=== PATIENT | female | born 1955 | race Caucasian/White ===

== ENCOUNTER 2019-11-01 19:57 | Emergency (ER) | payer OTHER, MEDICAID, SELFPAY ==
[2019-11-01 20:09] VITALS: BP 168/77; PULSE 72; RESP 18; TEMP 36.6; O2SAT 94
[2019-11-01 20:40] VITALS: BP 168/74; PULSE 71; RESP 14; TEMP 36.3; O2SAT 96
--- NOTE | 2019-11-01 20:58 | DI.US.S_ITS ---
PROCEDURE: US PERIPH VENOUS LOW EXTREM RT INDICATIONS: PAIN,SWELLING,HEAT TECHNIQUE: Real-time imaging, as well as color and pulse Doppler interrogation, were performed of the lower extremity deep veins from the inguinal ligament to the popliteal fossa. COMPARISON: None. FINDINGS: The common femoral, femoral and popliteal veins are normally compressible, and free of intraluminal thrombus. Color and pulse Doppler demonstrate normal phasic intraluminal flow. There is normal augmentation response to distal compression maneuver. IMPRESSION: Negative for deep venous thrombosis. Note: No significant discrepancy from the preliminary report. Dictated by: Alexandre Hart M.D. on 11/02/2019 at 7:56 Approved by: Alexandre Hart M.D. on 11/02/2019 at 7:56
--- NOTE | 2019-11-01 21:18 | ED_ITS ---
HPI - Extremity Problem <CHANDNI Denson - Last Filed: 11/01/19 21:28> General Chief complaint: Extremity Problem,Nontraumatic Stated complaint: right leg swelling and hot Time Seen by Provider: 11/01/19 20:39 Source: patient Mode of arrival: Ambulatory Limitations: no limitations History of Present Illness HPI Narrative: The patient is a 64-year-old female nonsmoker with history of MRSA, venous insufficiency in atrial fibrillation on Xarelto who presents with a chief complaint of a swollen and hot right lower leg. She states that last week she burned her right khanna on a oven rack. Then over the past few days she has noticed worsening dark redness on the back of her right lower leg. She thought she felt warm yesterday morning, but no longer does. She denies any abdominal pain nausea vomiting or diarrhea. She does complain of generalized fatigue. She states that she has not been moving a lot since this started. She states that she has history of a MRSA cellulitis on that area and has scarring of her lower leg. She denies any chest pain or abnormal shortness of breath. She states that she thinks her tetanus is up-to-date. Related Data Allergies Allergy/AdvReac Type Severity Reaction Status Date / Time sulfanilamide Allergy Verified 11/01/19 20:15 Review of Systems <JAIME Denson - Last Filed: 11/01/19 21:28> Review of Systems Narrative: GENERAL: See HPI HEENT: Denies sinus pain, ear pain, sore throat, difficulty swallowing, dizziness. RESPIRATORY: Denies dyspnea, cough, wheezing, hemoptysis, sputum. CARDIOVASCULAR: Denies chest pain, palpitations, orthopnea, edema, GASTROINTESTINAL: Denies nausea, vomiting, abdominal pain, diarrhea, constipation, melena. : Denies dysuria, frequency, incontinence, hematuria, urinary retention. MUSCULOSKELETAL: See HPI SKIN: See HPI NEUROLOGIC: Denies weakness, headache, numbness, change in speech, confusion, seizures, incoordination. PSYCHIATRIC: No concerning psychosocial issues. 12 point review of systems is negative except for those stated above Patient History <JAIME Denson - Last Filed: 11/01/19 21:28> Medical History Atrial fibrillation (Acute) History of MRSA infection (Acute) Venous insufficiency (Acute) Social History Smoking Status: Never smoker Smoking Status: Never smoker alcohol intake frequency: a few times a month Substance Use Type: does not use Exam <SHERON Denson-BC - Last Filed: 11/01/19 21:28> Narrative Exam Narrative: GENERAL: Obese female lying on stretcher in no acute distress HEAD: Atraumatic. Normocephalic. No temporal or scalp tenderness. EYES: Pupils equal round and reactive. Extraocular motions intact. No scleral icterus. No injection or drainage. ENT: Nose without bleeding, purulent drainage or septal hematoma. Throat without erythema, tonsillar hypertrophy or exudate. Uvula midline. Airway patent. NECK: Trachea midline. No JVD or lymphadenopathy. Supple, nontender, no meningeal signs. CARDIOVASCULAR: Irregular rate and regular rhythm. The distant. RESPIRATORY: Diminished bilaterally to auscultation. Breath sounds equal bilaterally. No wheezes, rales, or rhonchi. No cough. No increased respiratory effort. No accessory muscle use. Speaking full sentences. GASTROINTESTINAL: Abdomen soft, non-tender, nondistended. N active bowel sounds all 4 quadrants EXTREMITIES: +1 pedal pulses bilaterally. 2+ edema bilateral lower legs. Pain to palpation of right calf. See skin exam BACK: Nontender without deformity or crepitance. No flank tenderness. NEURO: AOx3. SKIN: A 2 cm scabbed burn on right khanna with no surrounding erythema or drainage. Erythema noted entire posterior of right lower leg. Warm, tender to palpation. Initial Vital Signs Initial Vital Signs: Vital Signs Temperature 97.9 F 11/01/19 20:09 Pulse Rate 72 11/01/19 20:09 Respiratory Rate 18 11/01/19 20:09 Blood Pressure 168/77 H 11/01/19 20:09 Pulse Oximetry 94 11/01/19 20:09 <Lili New MD - Last Filed: 11/01/19 22:09> Initial Vital Signs Initial Vital Signs: Vital Signs Temperature 97.9 F 11/01/19 20:09 Pulse Rate 72 11/01/19 20:09 Respiratory Rate 18 11/01/19 20:09 Blood Pressure 168/77 H 11/01/19 20:09 Pulse Oximetry 94 11/01/19 20:09 Course <Cheyenne Moyer CUBE MACHINE TENDER-BC - Last Filed: 11/01/19 21:28> Course Course Narrative: The patient is a 64-year-old female who presents with a chief complaint of right lower leg pain and swelling. She has a burn on the anterior aspect of her right lower leg, though erythema on posterior side. Patient is signed out to Dr. New at 2110, with lab work pending to evaluate of cellulitis versus DVT. Orders Ordered: ED Orders 11/01/19 20:58 perip venous low extrem rt Stat 11/01/19 21:26 Complete Blood Count AUTO DIFF Stat Comprehensive Metabolic Panel Stat Lactate (Lactic Acid) Stat Partial Thromboplastin Time Stat Procalcitonin Stat Prothrombin Time INR Stat Ceftriaxone Sodium/Dextrose (Rocephin) 2 gm in 50 mls @ 100 mls/hr IV NOW ONE Stop: 11/01/19 22:27 Vital Signs Vital signs: Vital Signs - 8 hr 11/01/19 20:09 11/01/19 20:40 11/01/19 21:30 Temperature 97.9 F 97.4 F L Pulse Rate 72 71 73 Respiratory Rate 18 14 12 Blood Pressure 168/77 H Blood Pressure [Left Arm] 168/74 H 168/74 H Pulse Oximetry 94 96 100 <Lili New MD - Last Filed: 11/01/19 22:09> Orders Ordered: ED Orders 11/01/19 20:58 [facility] venous low extrem rt Stat 11/01/19 21:26 Complete Blood Count AUTO DIFF Stat Comprehensive Metabolic Panel Stat Lactate (Lactic Acid) Stat Partial Thromboplastin Time Stat Procalcitonin Stat Prothrombin Time INR Stat Ceftriaxone Sodium/Dextrose (Rocephin) 2 gm in 50 mls @ 100 mls/hr IV NOW ONE Stop: 11/01/19 22:27 Vital Signs Vital signs: Vital Signs - 8 hr 11/01/19 20:09 11/01/19 20:40 11/01/19 21:30 Temperature 97.9 F 97.4 F L Pulse Rate 72 71 73 Respiratory Rate 18 14 12 Blood Pressure 168/77 H Blood Pressure [Left Arm] 168/74 H 168/74 H Pulse Oximetry 94 96 100 MDM - Extremity (Nontraumatic) <Cheyenne Moyer, CUBE MACHINE TENDER-BC - Last Filed: 11/01/19 21:28> Lab Data Result diagrams: 11/01/19 21:26 11/01/19 21:26 Labs: Lab Results 11/01/19 11/01/19 11/01/19 Range/Units 21:26 21:26 21:26 WBC 9.0 (4.5-11.0) X10^3/uL RBC 3.82 L (4.0-5.2) X10^6/uL Hgb 12.1 (12.0-16.0) g/dL Hct 36.1 (36-46) % MCV 94.3 (80-100) fL MCH 31.6 (26-34) PG MCHC 33.5 (30-36) % RDW 13.6 (11.6-14.8) % Plt Count 224 (150-400) X10^3/uL Neut % (Auto) 77.1 H (50-75) % Lymph % (Auto) 11.6 L (25-40) % [place] % (Auto) 10.5 (3-14) % Eos % (Auto) 0.2 L (2-4) % Baso % (Auto) 0.6 (0-2) % Neut # (Auto) 7000 (0264-1846) /uL Lymph # (Auto) 1100 (9733-9730) /uL [place] # (Auto) 1000 H (0-900) /uL Eos # (Auto) 0 (0-450) /uL Baso # (Auto) 100 (0-100) /uL PT 16.0 H (10.1-12.7) SECONDS INR 1.4 H (0.9-1.3) APTT 39 H (26.4-36.2) SECONDS Sodium (137-145) mmol/L Potassium (3.4-5.1) mmol/L Chloride (98-107) mmol/L Carbon Dioxide (22-32) mmol/L BUN (7-17) mg/dL Creatinine (0.52-1.04) mg/dL Estimated GFR (>60) mL/min BUN/Creatinine Ratio (6-22) Glucose (80-110) mg/dL Lactate (0.7-2.1) mmol/L Calcium (8.4-10.2) mg/dL Total Bilirubin (0.2-1.3) mg/dL AST (14-36) IU/L ALT (<35) IU/L Alkaline Phosphatase (38-126) U/L Total Protein (6.3-8.2) g/dL Albumin (3.5-5.0) g/dL Globulin (1.7-4.1) g/dL Albumin/Globulin Ratio (1.0-2.8) Procalcitonin < 0.05 (<0.5) ng/mL 11/01/19 11/01/19 Range/Units 21:26 21:26 WBC (4.5-11.0) X10^3/uL RBC (4.0-5.2) X10^6/uL Hgb (12.0-16.0) g/dL Hct (36-46) % MCV (80-100) fL MCH (26-34) PG MCHC (30-36) % RDW (11.6-14.8) % Plt Count (150-400) X10^3/uL Neut % (Auto) (50-75) % Lymph % (Auto) (25-40) % [place] % (Auto) (3-14) % Eos % (Auto) (2-4) % Baso % (Auto) (0-2) % Neut # (Auto) (7708-6764) /uL Lymph # (Auto) (8411-7063) /uL [place] # (Auto) (0-900) /uL Eos # (Auto) (0-450) /uL Baso # (Auto) (0-100) /uL PT (10.1-12.7) SECONDS INR (0.9-1.3) APTT (26.4-36.2) SECONDS Sodium 140 (137-145) mmol/L Potassium 4.0 (3.4-5.1) mmol/L Chloride 104 (98-107) mmol/L Carbon Dioxide 33 H (22-32) mmol/L BUN 17 (7-17) mg/dL Creatinine 0.99 (0.52-1.04) mg/dL Estimated GFR 56.1 L (>60) mL/min BUN/Creatinine Ratio 17.2 (6-22) Glucose 108 (80-110) mg/dL Lactate 0.6 L (0.7-2.1) mmol/L Calcium 9.8 (8.4-10.2) mg/dL Total Bilirubin 0.5 (0.2-1.3) mg/dL AST 25 (14-36) IU/L ALT 20 (<35) IU/L Alkaline Phosphatase 65 (38-126) U/L Total Protein 7.7 (6.3-8.2) g/dL Albumin 4.2 (3.5-5.0) g/dL Globulin 3.5 (1.7-4.1) g/dL Albumin/Globulin Ratio 1.2 (1.0-2.8) Procalcitonin (<0.5) ng/mL <Lili New MD - Last Filed: 11/01/19 22:09> Lab Data Attestation: I reviewed the patient's lab results. Lab results narrative: No signs of sepsis or worsening renal function. Normal white blood cell count Labs: Lab Results 11/01/19 11/01/19 11/01/19 Range/Units 21:26 21:26 21:26 WBC 9.0 (4.5-11.0) X10^3/uL RBC 3.82 L (4.0-5.2) X10^6/uL Hgb 12.1 (12.0-16.0) g/dL Hct 36.1 (36-46) % MCV 94.3 (80-100) fL MCH 31.6 (26-34) PG MCHC 33.5 (30-36) % RDW 13.6 (11.6-14.8) % Plt Count 224 (150-400) X10^3/uL Neut % (Auto) 77.1 H (50-75) % Lymph % (Auto) 11.6 L (25-40) % [place] % (Auto) 10.5 (3-14) % Eos % (Auto) 0.2 L (2-4) % Baso % (Auto) 0.6 (0-2) % Neut # (Auto) 7000 (6491-4025) /uL Lymph # (Auto) 1100 (9912-9377) /uL [place] # (Auto) 1000 H (0-900) /uL Eos # (Auto) 0 (0-450) /uL Baso # (Auto) 100 (0-100) /uL PT 16.0 H (10.1-12.7) SECONDS INR 1.4 H (0.9-1.3) APTT 39 H (26.4-36.2) SECONDS Sodium (137-145) mmol/L Potassium (3.4-5.1) mmol/L Chloride (98-107) mmol/L Carbon Dioxide (22-32) mmol/L BUN (7-17) mg/dL Creatinine (0.52-1.04) mg/dL Estimated GFR (>60) mL/min BUN/Creatinine Ratio (6-22) Glucose (80-110) mg/dL Lactate (0.7-2.1) mmol/L Calcium (8.4-10.2) mg/dL Total Bilirubin (0.2-1.3) mg/dL AST (14-36) IU/L ALT (<35) IU/L Alkaline Phosphatase (38-126) U/L Total Protein (6.3-8.2) g/dL Albumin (3.5-5.0) g/dL Globulin (1.7-4.1) g/dL Albumin/Globulin Ratio (1.0-2.8) Procalcitonin < 0.05 (<0.5) ng/mL 11/01/19 11/01/19 Range/Units 21:26 21:26 WBC (4.5-11.0) X10^3/uL RBC (4.0-5.2) X10^6/uL Hgb (12.0-16.0) g/dL Hct (36-46) % MCV (80-100) fL MCH (26-34) PG MCHC (30-36) % RDW (11.6-14.8) % Plt Count (150-400) X10^3/uL Neut % (Auto) (50-75) % Lymph % (Auto) (25-40) % [place] % (Auto) (3-14) % Eos % (Auto) (2-4) % Baso % (Auto) (0-2) % Neut # (Auto) (9223-4418) /uL Lymph # (Auto) (3828-1300) /uL [place] # (Auto) (0-900) /uL Eos # (Auto) (0-450) /uL Baso # (Auto) (0-100) /uL PT (10.1-12.7) SECONDS INR (0.9-1.3) APTT (26.4-36.2) SECONDS Sodium 140 (137-145) mmol/L Potassium 4.0 (3.4-5.1) mmol/L Chloride 104 (98-107) mmol/L Carbon Dioxide 33 H (22-32) mmol/L BUN 17 (7-17) mg/dL Creatinine 0.99 (0.52-1.04) mg/dL Estimated GFR 56.1 L (>60) mL/min BUN/Creatinine Ratio 17.2 (6-22) Glucose 108 (80-110) mg/dL Lactate 0.6 L (0.7-2.1) mmol/L Calcium 9.8 (8.4-10.2) mg/dL Total Bilirubin 0.5 (0.2-1.3) mg/dL AST 25 (14-36) IU/L ALT 20 (<35) IU/L Alkaline Phosphatase 65 (38-126) U/L Total Protein 7.7 (6.3-8.2) g/dL Albumin 4.2 (3.5-5.0) g/dL Globulin 3.5 (1.7-4.1) g/dL Albumin/Globulin Ratio 1.2 (1.0-2.8) Procalcitonin (<0.5) ng/mL Imaging Data US - DVT: My Impression: Per instructional technology coordinator, no evidence of DVT MDM Narrative Medical decision making narrative: Patient is assumed from Cheyenne Moyer. She has independently examined. She has a healing wound on her anterior khanna with erythema to the bottom 3/4 of her calf with dependent erythema posteriorly and increasing overall swelling. She does have chronic venous stasis changes. Approximately 9 years ago she had a significant MRSA infection in needed hospitalization. She notes that she has had myalgias and low-grade fevers for a couple of days. She has not noticed any drainage from the wound. Ultrasound indicates no evidence of DVT. Labs suggests no evidence of sepsis. With an obvious source for infection, no sign of sepsis, chronic venous stasis changes and with shared decision making with the patient we have opted to start with 2 g of ceftriaxone here in the emergency department and then continue Keflex and clindamycin outpatient. She is allergic to Septra. <Lili New MD - Last Filed: 11/01/19 22:09> Cosign ED Attending Cosignature Attestation: I was immediately available in the department for consultation throughout this patient's visit. I agree with documentation as above. Lili New MD
[2019-11-01 21:30] VITALS: BP 168/74; PULSE 73; RESP 12; O2SAT 100
[2019-11-01 21:33] LABS: Add Manual Diff / Slide Review NO; Basophils Absolute Auto 100 /uL (0-100); Basophils Percent Auto 0.6 % (0-2); Eosinophils Absolute Auto 0 /uL (0-450); Eosinophils Percent Auto 0.2 % (2-4); Hematocrit 36.1 % (36-46); Hemoglobin 12.1 g/dL (12.0-16.0); Lymphocytes Absolute Auto 1100 /uL (1100-4500); Lymphocytes Percent Auto 11.6 % (25-40); Mean Corpuscular HGB Conc 33.5 % (30-36); Mean Corpuscular Hemoglobin 31.6 PG (26-34); Mean Corpuscular Volume 94.3 fL (80-100); Monocytes Absolute Auto 1000 /uL (0-900); Monocytes Percent Auto 10.5 % (3-14); Neutrophils Absolute Auto 7000 /uL (1500-7000); Neutrophils Percent Auto 77.1 % (50-75); Platelet Count 224 X10^3/uL (150-400); Red Blood Cell Count 3.82 X10^6/uL (4.0-5.2); Red Cell Distribution Width 13.6 % (11.6-14.8)
[2019-11-01 21:40] LABS: INR 1.4 (0.9-1.3)
[2019-11-01 21:43] LABS: PTT Partial Thromboplastin Tim 39 SECONDS (26.4-36.2)
[2019-11-01 21:44] LABS: Lactate (Lactic Acid) 0.6 mmol/L (0.7-2.1)
[2019-11-01 21:46] LABS: Alanine Aminotransferase 20 IU/L (<35); Albumin 4.2 g/dL (3.5-5.0); Albumin Globulin Ratio 1.2 (1.0-2.8); Alkaline Phosphatase 65 U/L (38-126); Aspartate Aminotransferase 25 IU/L (14-36); BUN Creatinine Ratio 17.2 (6-22); Bilirubin Total 0.5 mg/dL (0.2-1.3); Blood Urea Nitrogen 17 mg/dL (7-17); Calcium 9.8 mg/dL (8.4-10.2); Carbon Dioxide 33 mmol/L (22-32); Chloride 104 mmol/L (98-107); Estimated Glomerular Filt Rate 56.1 mL/min (>60); Globulin 3.5 g/dL (1.7-4.1); Glucose 108 mg/dL (80-110); HEMOLYSIS < 15 (0-50); Sodium 140 mmol/L (137-145); Total Protein 7.7 g/dL (6.3-8.2)
[2019-11-01 22:02] LABS: Procalcitonin < 0.05 ng/mL (<0.5)
[2019-11-01] MEDS: CEFTRIAXONE 2 GM/50 ML FROZ.PIGGY IV (22:15)
[2019-11-01 23:30] VITALS: PULSE 67; RESP 18; O2SAT 97
== END 2019-11-01 23:30 | disposition home or self-care (01) ==
PROVIDERS: Nurse Practitioner Family; Emergency Provider Emergency Medicine
DX: L03.115 Cellulitis of right lower limb (principal); I87.2 Venous insufficiency (chronic) (peripheral); I48.91 Unspecified atrial fibrillation; Z86.14 Personal history of Methicillin resistant Staphylococcus aureus infection
CPT/HCPCS: 36415; 80053; 83605; 84145; 85025; 85610; 85730; 93971; 96365; 99284; J0696

== ENCOUNTER 2019-11-10 14:34 | Inpatient (IN) | payer OTHER, MEDICAID, SELFPAY ==
[2019-11-10 14:38] VITALS: BP 157/92; PULSE 53; RESP 22; TEMP 35.9; O2SAT 98
[2019-11-10 15:27] LABS: Add Manual Diff / Slide Review NO; Basophils Absolute Auto 0 /uL (0-100); Basophils Percent Auto 0.9 % (0-2); Eosinophils Absolute Auto 0 /uL (0-450); Eosinophils Percent Auto 0.7 % (2-4); Hematocrit 34.7 % (36-46); Hemoglobin 11.5 g/dL (12.0-16.0); Lymphocytes Absolute Auto 1200 /uL (1100-4500); Lymphocytes Percent Auto 22.9 % (25-40); Mean Corpuscular HGB Conc 33.3 % (30-36); Mean Corpuscular Hemoglobin 31.4 PG (26-34); Mean Corpuscular Volume 94.3 fL (80-100); Monocytes Absolute Auto 500 /uL (0-900); Monocytes Percent Auto 8.5 % (3-14); Neutrophils Absolute Auto 3600 /uL (1500-7000); Platelet Count 309 X10^3/uL (150-400); Red Blood Cell Count 3.68 X10^6/uL (4.0-5.2); Red Cell Distribution Width 13.1 % (11.6-14.8); White Blood Cell Count 5.3 X10^3/uL (4.5-11.0)
--- NOTE | 2019-11-10 15:41 | PC.NURSE ---
pt report, treated with cellulitis right lower legs, +hx of mrsa, redness is better, but pain worsening radiating up. admits able to ambulate, distal cms intact.
[2019-11-10 15:46] LABS: Alanine Aminotransferase 27 IU/L (<35); Albumin 4.3 g/dL (3.5-5.0); Albumin Globulin Ratio 1.1 (1.0-2.8); Alkaline Phosphatase 72 U/L (38-126); Aspartate Aminotransferase 33 IU/L (14-36); BUN Creatinine Ratio 15.9 (6-22); Bilirubin Total 0.5 mg/dL (0.2-1.3); Blood Urea Nitrogen 18 mg/dL (7-17); Calcium 9.7 mg/dL (8.4-10.2); Carbon Dioxide 30 mmol/L (22-32); Chloride 104 mmol/L (98-107); Estimated Glomerular Filt Rate 48.2 mL/min (>60); Globulin 3.9 g/dL (1.7-4.1); Glucose 106 mg/dL (80-110); HEMOLYSIS < 15 (0-50); Potassium 4.7 mmol/L (3.4-5.1); Sodium 141 mmol/L (137-145); Total Protein 8.2 g/dL (6.3-8.2)
[2019-11-10 15:47] LABS: Lactate (Lactic Acid) 0.9 mmol/L (0.7-2.1)
[2019-11-10 16:03] LABS: Procalcitonin < 0.05 ng/mL (<0.5)
--- NOTE | 2019-11-10 16:30 | ED_ITS ---
HPI - Skin/Abscess/Foreign Bdy <Cheyenne Moyer, [employer] - Last Filed: 11/10/19 19:26> General Chief complaint: Skin/Abscess/Foreign Body Stated complaint: rt leg/ cellulitis Time Seen by Provider: 11/10/19 14:44 Source: patient Mode of arrival: Ambulatory Limitations: no limitations History of Present Illness HPI narrative: The patient is a 64-year-old female nonsmoker with history of cellulitis who presents with a chief complaint of worsening and not improving cellulitis. She states that she recently finished a week of clindamycin and Keflex after IV antibiotics in the emergency department. She took a whole course. She presents persistent fatigue, general malaise, and states that her cellulitis has not improved. She states it has blistered on the back. She states that she had a negative DVT ultrasound during her visit previously. She denies any fevers complains of slight nausea yesterday denies any abdominal pain or vomiting. She states that her pain has become much worse. Related Data Home Medications Medication Instructions Recorded Confirmed Adults Multivitamin 1 tab PO DAILY 11/10/19 11/10/19 acetaminophen [Tylenol] 650 mg PO Q4H PRN 11/10/19 11/10/19 amiodarone 200 mg PO DAILY 11/10/19 11/10/19 atorvastatin 10 mg PO BEDTIME 11/10/19 11/10/19 baclofen 10 mg PO DAILY 11/10/19 11/10/19 cholecalciferol (vitamin D3) 25 mcg PO DAILY 11/10/19 11/10/19 diltiazem HCl 240 mg PO DAILY 11/10/19 11/10/19 famotidine 10 mg PO BEDTIME 11/10/19 11/10/19 fluticasone propion-salmeterol 1 inh INHALATION BID 11/10/19 11/10/19 [Advair Diskus] furosemide 80 mg PO DAILY 11/10/19 11/10/19 lisinopril 10 mg PO DAILY 11/10/19 11/10/19 magnesium citrate 100 mg PO BEDTIME 11/10/19 11/10/19 meclizine 25 mg PO DAILY PRN 11/10/19 11/10/19 meloxicam 15 mg PO DAILY 11/10/19 11/10/19 metoprolol succinate 50 mg PO DAILY 11/10/19 11/10/19 mometasone 2 spray INTRANASAL BEDTIME 11/10/19 11/10/19 montelukast 10 mg PO BEDTIME 11/10/19 11/10/19 pantoprazole 40 mg PO DAILY 11/10/19 11/10/19 potassium chloride 20 meq PO DAILY 11/10/19 11/10/19 pregabalin [Lyrica] 25 mg PO BID 11/10/19 11/10/19 rivaroxaban [Xarelto] 20 mg PO BEDTIME 11/10/19 11/10/19 vitamin R27-vylzz acid 1 tab PO DAILY 11/10/19 11/10/19 Previous Rx's Medication Instructions Recorded cephalexin 500 mg PO TID #21 cap 11/01/19 clindamycin HCl 300 mg PO TID #21 cap 11/01/19 Allergies Allergy/AdvReac Type Severity Reaction Status Date / Time sulfanilamide Allergy Verified 11/01/19 20:15 Review of Systems <CHANDNI Denson - Last Filed: 11/10/19 19:26> Review of Systems Narrative: GENERAL: Denies chills, fatigue, malaise, fever, sweats. HEENT: Denies sinus pain, ear pain, sore throat, difficulty swallowing, dizziness. RESPIRATORY: Denies dyspnea, cough, wheezing, hemoptysis, sputum. CARDIOVASCULAR: Denies chest pain, palpitations, orthopnea, edema, GASTROINTESTINAL: Denies nausea, vomiting, abdominal pain, diarrhea, constipation, melena. : Denies dysuria, frequency, incontinence, hematuria, urinary retention. MUSCULOSKELETAL: denies weakness, joint pain, or bony pain SKIN: See HPI NEUROLOGIC: Denies weakness, headache, numbness, change in speech, confusion, seizures, incoordination. PSYCHIATRIC: No concerning psychosocial issues. 12 point review of systems is negative except for those stated above Patient History <CHANDNI Denson - Last Filed: 11/10/19 19:26> Social History household members: children Smoking Status: Never smoker Smoking Status: Never smoker alcohol intake frequency: a few times a month Substance Use Type: does not use Exam <CHANDNI Denson - Last Filed: 11/10/19 19:26> Narrative Exam Narrative: GENERAL: This is a well-nourished, well-developed patient, in no acute distress HEAD: Atraumatic. Normocephalic. No temporal or scalp tenderness. EYES: Pupils equal round and reactive. Extraocular motions intact. No scleral icterus. No injection or drainage. ENT: Nose without bleeding, purulent drainage or septal hematoma. Throat without erythema, tonsillar hypertrophy or exudate. Uvula midline. Airway patent. NECK: Trachea midline. No JVD or lymphadenopathy. Supple, nontender, no meningeal signs. CARDIOVASCULAR: Regular rate and rhythm muscle use. RESPIRATORY: Clear to auscultation. Breath sounds equal bilaterally. No wheezes, rales, or rhonchi. No cough. No increased respiratory effort. No accessory GASTROINTESTINAL: Abdomen soft, obese, non-tender, nondistended. No hepato- splenomegaly, or palpable masses. No guarding. EXTREMITIES: see skin exam. Positive pedal pulses bilaterally. BACK: Nontender without deformity or crepitance. No flank tenderness. NEURO: AOx3. SKIN: Erythema and warmth circumferential right lower leg. 24 cm in length home long posterior leg. No obvious drainage. Initial Vital Signs Initial Vital Signs: Vital Signs Temperature 96.6 F L 11/10/19 14:38 Pulse Rate 53 L 11/10/19 14:38 Respiratory Rate 22 11/10/19 14:38 Blood Pressure 157/92 H 11/10/19 14:38 Pulse Oximetry 98 11/10/19 14:38 <Ronny Caballero DO - Last Filed: 11/11/19 07:10> Initial Vital Signs Initial Vital Signs: Vital Signs Temperature 96.6 F L 11/10/19 14:38 Pulse Rate 53 L 11/10/19 14:38 Respiratory Rate 22 11/10/19 14:38 Blood Pressure 157/92 H 11/10/19 14:38 Pulse Oximetry 98 11/10/19 14:38 Scores <CHANDNI Denson - Last Filed: 11/10/19 19:26> GCS [place] coma scale eye opening: Spontaneous [place] coma scale verbal response: Orientated [place] coma scale motor response: Obey commands [place] coma scale total score: 15 Course <CHANDNI Denson - Last Filed: 11/10/19 19:26> Orders Ordered: ED Orders 11/11/19 05:15 Complete Blood Count AUTO DIFF Stat Comprehensive Metabolic Panel Stat Acetaminophen (Tylenol) 650 mg PO Q6HR PRN PRN Reason: Fever/Mild Pain (1-3) Last Admin: 11/11/19 00:49 Dose: 650 mg Documented by: Admin: 11/10/19 19:16 Dose: 650 mg Documented by: ROD Sodium Chloride (Normal Saline 0.9%) 1,000 mls @ 125 mls/hr IV CONT ADRIA Last Admin: 11/11/19 06:53 Dose: 125 mls/hr Documented by: Infusion: 11/11/19 03:05 Dose: 125 mls/hr Documented by: Admin: 11/10/19 19:05 Dose: 125 mls/hr Documented by: ROD Ondansetron HCl (Zofran) 4 mg IV Q4HR PRN PRN Reason: Nausea And Vomiting Discontinued Medications Vancomycin HCl/Dextrose (Vancomycin) 2,000 mg in 400 mls @ 200 mls/hr IV NOW ONE Stop: 11/10/19 20:14 Last Infusion: 11/11/19 00:00 Dose: 0 mls/hr Documented by: Admin: 11/10/19 19:08 Dose: 200 mls/hr Documented by: ROD Rivaroxaban (Xarelto) 20 mg PO NOW ONE Stop: 11/10/19 21:01 Last Admin: 11/10/19 21:51 Dose: 20 mg Documented by: ROD Vital Signs Vital signs: Vital Signs - 8 hr 11/10/19 14:38 11/10/19 18:07 Temperature 96.6 F L Pulse Rate 53 L 51 L Respiratory Rate 22 18 Blood Pressure 157/92 H Blood Pressure [Left Arm] 156/70 H Pulse Oximetry 98 98 <Ronny Caballero DO - Last Filed: 11/11/19 07:10> Orders Ordered: ED Orders 11/11/19 05:15 Complete Blood Count AUTO DIFF Stat Comprehensive Metabolic Panel Stat Acetaminophen (Tylenol) 650 mg PO Q6HR PRN PRN Reason: Fever/Mild Pain (1-3) Last Admin: 11/11/19 00:49 Dose: 650 mg Documented by: Admin: 11/10/19 19:16 Dose: 650 mg Documented by: ROD Sodium Chloride (Normal Saline 0.9%) 1,000 mls @ 125 mls/hr IV CONT ADRIA Last Admin: 11/11/19 06:53 Dose: 125 mls/hr Documented by: Infusion: 11/11/19 03:05 Dose: 125 mls/hr Documented by: Admin: 11/10/19 19:05 Dose: 125 mls/hr Documented by: ROD Ondansetron HCl (Zofran) 4 mg IV Q4HR PRN PRN Reason: Nausea And Vomiting Discontinued Medications Vancomycin HCl/Dextrose (Vancomycin) 2,000 mg in 400 mls @ 200 mls/hr IV NOW ONE Stop: 11/10/19 20:14 Last Infusion: 11/11/19 00:00 Dose: 0 mls/hr Documented by: Admin: 11/10/19 19:08 Dose: 200 mls/hr Documented by: ROD Rivaroxaban (Xarelto) 20 mg PO NOW ONE Stop: 11/10/19 21:01 Last Admin: 11/10/19 21:51 Dose: 20 mg Documented by: ROD Vital Signs Vital signs: Vital Signs - 8 hr 11/10/19 14:38 11/10/19 18:07 Temperature 96.6 F L Pulse Rate 53 L 51 L Respiratory Rate 22 18 Blood Pressure 157/92 H Blood Pressure [Left Arm] 156/70 H Pulse Oximetry 98 98 MDM - Skin/Abscess/Foreign Bdy <JAIME Denson - Last Filed: 11/10/19 19:26> Differential Diagnosis Differential diagnosis: Likely abscess of skin or subcutaneous tissue, urticaria and other (DVT) Lab Data Attestation: I reviewed the patient's lab results. Result diagrams: 11/11/19 05:15 11/11/19 05:15 Labs: Lab Results 11/10/19 11/10/19 11/10/19 Range/Units 15:15 15:15 15:15 WBC 5.3 (4.5-11.0) X10^3/uL RBC 3.68 L (4.0-5.2) X10^6/uL Hgb 11.5 L (12.0-16.0) g/dL Hct 34.7 L (36-46) % MCV 94.3 (80-100) fL MCH 31.4 (26-34) PG MCHC 33.3 (30-36) % RDW 13.1 (11.6-14.8) % Plt Count 309 (150-400) X10^3/uL Neut % (Auto) 67.0 (50-75) % Lymph % (Auto) 22.9 L (25-40) % [place] % (Auto) 8.5 (3-14) % Eos % (Auto) 0.7 L (2-4) % Baso % (Auto) 0.9 (0-2) % Neut # (Auto) 3600 (7321-4947) /uL Lymph # (Auto) 1200 (0629-2419) /uL [place] # (Auto) 500 (0-900) /uL Eos # (Auto) 0 (0-450) /uL Baso # (Auto) 0 (0-100) /uL Sodium 141 (137-145) mmol/L Potassium 4.7 (3.4-5.1) mmol/L Chloride 104 (98-107) mmol/L Carbon Dioxide 30 (22-32) mmol/L BUN 18 H (7-17) mg/dL Creatinine 1.13 H (0.52-1.04) mg/dL Estimated GFR 48.2 L (>60) mL/min BUN/Creatinine Ratio 15.9 (6-22) Glucose 106 (80-110) mg/dL Lactate (0.7-2.1) mmol/L Calcium 9.7 (8.4-10.2) mg/dL Total Bilirubin 0.5 (0.2-1.3) mg/dL AST 33 (14-36) IU/L ALT 27 (<35) IU/L Alkaline Phosphatase 72 (38-126) U/L Total Protein 8.2 (6.3-8.2) g/dL Albumin 4.3 (3.5-5.0) g/dL Globulin 3.9 (1.7-4.1) g/dL Albumin/Globulin Ratio 1.1 (1.0-2.8) Procalcitonin < 0.05 (<0.5) ng/mL 11/10/19 Range/Units 15:15 WBC (4.5-11.0) X10^3/uL RBC (4.0-5.2) X10^6/uL Hgb (12.0-16.0) g/dL Hct (36-46) % MCV (80-100) fL MCH (26-34) PG MCHC (30-36) % RDW (11.6-14.8) % Plt Count (150-400) X10^3/uL Neut % (Auto) (50-75) % Lymph % (Auto) (25-40) % [place] % (Auto) (3-14) % Eos % (Auto) (2-4) % Baso % (Auto) (0-2) % Neut # (Auto) (4600-6170) /uL Lymph # (Auto) (5498-6907) /uL [place] # (Auto) (0-900) /uL Eos # (Auto) (0-450) /uL Baso # (Auto) (0-100) /uL Sodium (137-145) mmol/L Potassium (3.4-5.1) mmol/L Chloride (98-107) mmol/L Carbon Dioxide (22-32) mmol/L BUN (7-17) mg/dL Creatinine (0.52-1.04) mg/dL Estimated GFR (>60) mL/min BUN/Creatinine Ratio (6-22) Glucose (80-110) mg/dL Lactate 0.9 (0.7-2.1) mmol/L Calcium (8.4-10.2) mg/dL Total Bilirubin (0.2-1.3) mg/dL AST (14-36) IU/L ALT (<35) IU/L Alkaline Phosphatase (38-126) U/L Total Protein (6.3-8.2) g/dL Albumin (3.5-5.0) g/dL Globulin (1.7-4.1) g/dL Albumin/Globulin Ratio (1.0-2.8) Procalcitonin (<0.5) ng/mL Imaging Data US - DVT: Radiologist's Impression: [facility] [address] [place] [id number] Ultrasound Report Signed Patient: Quinten EmeryJanettR#: [id number] : 3Acct:[id number] Age/Sex: 64 / FDate of Service: 11/10/19 Loc: ED Accession Number: [id number] Procedure: periph venous low extrem rt Ordering Provider: Cheyenne Moyer PROCEDURE: US PERIPH VENOUS LOW EXTREM RT INDICATIONS: PAIN, EDEMA TECHNIQUE: Real-time imaging, as well as color and pulse Doppler interrogation, were performed of the lower extremity deep veins from the inguinal ligament to the popliteal fossa. COMPARISON: [facility], PERIPH VENOUS LOW EXTREM RT, 11/01/2019, 21:20. FINDINGS: The common femoral, femoral and popliteal veins are normally compressible, and free of intraluminal thrombus. Color and pulse Doppler demonstrate normal phasic intraluminal flow. There is normal augmentation response to distal compression maneuver. IMPRESSION: Negative for deep venous thrombosis. Dictated by: Alexandre Hart M.D. on 11/10/2019 at 16:52 Approved by: Alexandre Hart M.D. on 11/10/2019 at 16:53 MDM Narrative Medical decision making narrative: The patient is a 64-year-old female who presents with a chief complaint of worsening cellulitis unresponsive to oral Keflex and clindamycin. She is still clinically has worsening cellulitis, though normal WBC, lactate, procalcitonin. However she has failed outpatient treatment. Repeated ultrasound for DVT which came back negative. She does have comorbidities including obesity, history of MRSA cellulitis requiring inpatient admission. Blood cultures were taken. Patient was started on vancomycin. Spoke with Dr. Lyons regarding inpatient admission as the patient has failed clinically appropriate outpatient treatment. Holding orders placed as requested. Patient has taken both doses of metoprolol today, so will not order further. Night Xarelto ordered. Wound culture taken by nursing. Patient states understanding of admission. <Ronny Caballero, DO - Last Filed: 11/11/19 07:10> Lab Data Labs: Lab Results 11/10/19 11/10/19 11/10/19 Range/Units 15:15 15:15 15:15 WBC 5.3 (4.5-11.0) X10^3/uL RBC 3.68 L (4.0-5.2) X10^6/uL Hgb 11.5 L (12.0-16.0) g/dL Hct 34.7 L (36-46) % MCV 94.3 (80-100) fL MCH 31.4 (26-34) PG MCHC 33.3 (30-36) % RDW 13.1 (11.6-14.8) % Plt Count 309 (150-400) X10^3/uL Neut % (Auto) 67.0 (50-75) % Lymph % (Auto) 22.9 L (25-40) % [place] % (Auto) 8.5 (3-14) % Eos % (Auto) 0.7 L (2-4) % Baso % (Auto) 0.9 (0-2) % Neut # (Auto) 3600 (2088-1708) /uL Lymph # (Auto) 1200 (5630-1728) /uL [place] # (Auto) 500 (0-900) /uL Eos # (Auto) 0 (0-450) /uL Baso # (Auto) 0 (0-100) /uL Sodium 141 (137-145) mmol/L Potassium 4.7 (3.4-5.1) mmol/L Chloride 104 (98-107) mmol/L Carbon Dioxide 30 (22-32) mmol/L BUN 18 H (7-17) mg/dL Creatinine 1.13 H (0.52-1.04) mg/dL Estimated GFR 48.2 L (>60) mL/min BUN/Creatinine Ratio 15.9 (6-22) Glucose 106 (80-110) mg/dL Lactate (0.7-2.1) mmol/L Calcium 9.7 (8.4-10.2) mg/dL Total Bilirubin 0.5 (0.2-1.3) mg/dL AST 33 (14-36) IU/L ALT 27 (<35) IU/L Alkaline Phosphatase 72 (38-126) U/L Total Protein 8.2 (6.3-8.2) g/dL Albumin 4.3 (3.5-5.0) g/dL Globulin 3.9 (1.7-4.1) g/dL Albumin/Globulin Ratio 1.1 (1.0-2.8) Procalcitonin < 0.05 (<0.5) ng/mL 11/10/19 Range/Units 15:15 WBC (4.5-11.0) X10^3/uL RBC (4.0-5.2) X10^6/uL Hgb (12.0-16.0) g/dL Hct (36-46) % MCV (80-100) fL MCH (26-34) PG MCHC (30-36) % RDW (11.6-14.8) % Plt Count (150-400) X10^3/uL Neut % (Auto) (50-75) % Lymph % (Auto) (25-40) % [place] % (Auto) (3-14) % Eos % (Auto) (2-4) % Baso % (Auto) (0-2) % Neut # (Auto) (9483-6237) /uL Lymph # (Auto) (5126-4772) /uL [place] # (Auto) (0-900) /uL Eos # (Auto) (0-450) /uL Baso # (Auto) (0-100) /uL Sodium (137-145) mmol/L Potassium (3.4-5.1) mmol/L Chloride (98-107) mmol/L Carbon Dioxide (22-32) mmol/L BUN (7-17) mg/dL Creatinine (0.52-1.04) mg/dL Estimated GFR (>60) mL/min BUN/Creatinine Ratio (6-22) Glucose (80-110) mg/dL Lactate 0.9 (0.7-2.1) mmol/L Calcium (8.4-10.2) mg/dL Total Bilirubin (0.2-1.3) mg/dL AST (14-36) IU/L ALT (<35) IU/L Alkaline Phosphatase (38-126) U/L Total Protein (6.3-8.2) g/dL Albumin (3.5-5.0) g/dL Globulin (1.7-4.1) g/dL Albumin/Globulin Ratio (1.0-2.8) Procalcitonin (<0.5) ng/mL Discharge Plan Departure Patient Disposition: Admitted As Inpatient Clinical Impression: Cellulitis Qualifiers: Site of cellulitis: extremity Site of cellulitis of extremity: lower extremity Laterality: right Qualified Code(s): L03.115 - Cellulitis of right lower limb Discharge Date/Time: 11/10/19 18:41 Admit Date/Time: 11/10/19 18:26 Admit Provider: Kym Lyons <Ronny Caballero DO - Last Filed: 11/11/19 07:10> Cosign ED Attending Cosignature Attestation: I was immediately available in the department for consultation. This documentation has been reviewed and I agree with assessment and plan. Supervised by Ronny Caballero DO
--- NOTE | 2019-11-10 16:56 | DI.US.S_ITS ---
PROCEDURE: US [facility] VENOUS LOW EXTREM RT INDICATIONS: PAIN, EDEMA TECHNIQUE: Real-time imaging, as well as color and pulse Doppler interrogation, were performed of the lower extremity deep veins from the inguinal ligament to the popliteal fossa. COMPARISON: [facility], [facility] VENOUS LOW EXTREM RT, 11/01/2019, 21:20. FINDINGS: The common femoral, femoral and popliteal veins are normally compressible, and free of intraluminal thrombus. Color and pulse Doppler demonstrate normal phasic intraluminal flow. There is normal augmentation response to distal compression maneuver. IMPRESSION: Negative for deep venous thrombosis. Dictated by: Alexandre Hrat M.D. on 11/10/2019 at 16:52 Approved by: Alexandre Hart M.D. on 11/10/2019 at 16:53
--- NOTE | 2019-11-10 17:37 | PC.NURSE ---
for second culture
[2019-11-10 18:07] VITALS: BP 156/70; PULSE 51; RESP 18; O2SAT 98
[2019-11-10 18:40] VITALS: BP 150/90; PULSE 54; RESP 18; TEMP 36.1; O2SAT 96
[2019-11-10] MEDS: SODIUM CHLORIDE 0.9% 1,000 ML 125 ML IV (19:05)
[2019-11-10] MEDS: VANCOMYCIN 2,000 MG/400 ML PIGGYBACK 200 MG IV (19:08)
[2019-11-10] MEDS: ACETAMINOPHEN 325 MG TABLET 650 MG PO (19:16)
[2019-11-10 19:46] VITALS: BMI 47.0
[2019-11-10] MEDS: RIVAROXABAN 10 MG TABLET 20 MG PO (21:51)
--- NOTE | 2019-11-10 21:53 | PC.ADMIT ---
Admission Note: The patient,Kelley Emery,64 y/o, was given written information regarding hospital policies, unit procedures and contact persons. Pt arrived from ED at approx 1850. A/O. Trans from stretcher to bed independently. steady on feet. Placed on contact Isolation. Leg swabbed and sent for culture. IVF and IV ABX administered. Oriented to room and call system. Pt verbalized she will call for needs. Bed alarm placed on. Educated on fall prevention and pressure injury prevention. Pt verbalized understanding. Vital Signs - 8 hr 11/10/19 14:38 11/10/19 18:07 11/10/19 18:40 Temperature 96.6 F L 96.9 F L Pulse Rate 53 L 51 L 54 L Respiratory Rate 22 18 18 Blood Pressure 157/92 H 150/90 H Blood Pressure [Left Arm] 156/70 H Pulse Oximetry 98 98 96
--- NOTE | 2019-11-10 22:01 | PC.NURSE ---
Lana BOWMAN; awaiting return call for home meds to be ordered.
[2019-11-11] VITALS (7 sets, daily range): BP systolic 136–153; BP diastolic 59–77; PULSE 45–53; RESP 16–19; TEMP 36.1–36.9; O2SAT 94–98
[2019-11-11] MEDS: ACETAMINOPHEN 325 MG TABLET 650 MG PO ×5 (00:49→20:59)
[2019-11-11 05:35] LABS: Add Manual Diff / Slide Review NO; Basophils Absolute Auto 0 /uL (0-100); Basophils Percent Auto 0.8 % (0-2); Eosinophils Absolute Auto 0 /uL (0-450); Eosinophils Percent Auto 0.9 % (2-4); Hematocrit 30.5 % (36-46); Hemoglobin 10.4 g/dL (12.0-16.0); Lymphocytes Absolute Auto 1300 /uL (1100-4500); Lymphocytes Percent Auto 25.3 % (25-40); Mean Corpuscular HGB Conc 34.1 % (30-36); Mean Corpuscular Hemoglobin 31.9 PG (26-34); Mean Corpuscular Volume 93.6 fL (80-100); Monocytes Absolute Auto 500 /uL (0-900); Monocytes Percent Auto 10.2 % (3-14); Neutrophils Absolute Auto 3300 /uL (1500-7000); Neutrophils Percent Auto 62.8 % (50-75); Platelet Count 244 X10^3/uL (150-400); Red Blood Cell Count 3.26 X10^6/uL (4.0-5.2); Red Cell Distribution Width 13.1 % (11.6-14.8); White Blood Cell Count 5.2 X10^3/uL (4.5-11.0)
[2019-11-11 05:46] LABS: Alanine Aminotransferase 23 IU/L (<35); Albumin 3.3 g/dL (3.5-5.0); Alkaline Phosphatase 58 U/L (38-126); Aspartate Aminotransferase 30 IU/L (14-36); Bilirubin Total 0.4 mg/dL (0.2-1.3); Blood Urea Nitrogen 17 mg/dL (7-17); Carbon Dioxide 29 mmol/L (22-32); Chloride 106 mmol/L (98-107); Estimated Glomerular Filt Rate 55.5 mL/min (>60); Globulin 3.4 g/dL (1.7-4.1); Glucose 92 mg/dL (80-110); HEMOLYSIS < 15 (0-50); Potassium 4.1 mmol/L (3.4-5.1); Sodium 140 mmol/L (137-145); Total Protein 6.7 g/dL (6.3-8.2)
[2019-11-11] MEDS: SODIUM CHLORIDE 0.9% 1,000 ML 125 ML IV ×3 (06:53→23:43)
[2019-11-11 10:28] LABS: COVID19 -Nasal RAPID Negative (Negative)
[2019-11-11] MEDS: lisinopriL 10 MG TABLET PO (10:39)
[2019-11-11] MEDS: FUROSEMIDE 40 MG TABLET 80 MG PO (10:40)
[2019-11-11] MEDS: FLUTICASONE/SALMETEROL 250/50 60 PUFF DISKUS INH ×2 (10:58→19:49)
[2019-11-11] MEDS: dilTIAZem CD 240 MG CAP PO (10:58)
[2019-11-11] MEDS: MOMETASONE 120 SPRAY/17 GM NASAL SPRAY NASAL (10:58)
[2019-11-11] MEDS: AMIODARONE 200 MG TABLET PO (10:59)
[2019-11-11] MEDS: PREGABALIN 25 MG CAPSULE PO ×2 (11:05→20:56)
[2019-11-11] MEDS: VANCOMYCIN 2,000 MG/400 ML PIGGYBACK 200 MG IV (12:17)
--- NOTE | 2019-11-11 12:17 | CM.DANOTE ---
Addendum entered by Colleen Sanchez R.N. 11/11/19 15:32: Chong from [facility] called back. Stated that Medicaid has no drug benefits, but with her [employer], if patient were to go home with Vancomycin, she would need additional nursing visits, and co-pay could be approximately 177.00 per week. Stated, if she were to go home with a different antibiotic that would not need as much nursing visits, would be less. Original Note: DCP: Case received, EMR reviewed and met with patient. Introduced self and role. Was able to meet with her and obtain information regarding her baseline activity level, as well as living situation. DCP assessment completed with information currently available. Patient is a 64 year old female who admitted yesterday afternoon to the care of the hospitalist team. PCP: Dr. Johnson. Payer: confirmed: [employer] Medicare Advantage/Medicaid. Patient came to the hospital via family vehicle secondary to redness on her right leg. Patient was recently treated with oral antibiotics for cellulitis, which failed outpatient treatment. She is here for IV antibiotics at this time. Wound culture is still pending. Met with patient in her room. She was sitting up on the side of her bed. She mentioned that she lives with her son, Michael, and his , in [place]. She is still driving, and can do her own shopping. She also has a cane and a walker to get around. Patient mentioned that she has had cellulitis before. Patient stated, she was also treated for MRSA before. Went ahead and called Chong at [facility], in case patient needs assisted antibiotics after culture is complete. Let him know that patient has [employer] Medicare Advantage/Medicaid. He mentioned, she should have good coverage between the two insurances. Let him know that this case manage would go ahead and send him the referral. P: DCP to continue to follow. At this time, it is uncertain if patient will need longer term IV antibiotics. Referral sent to [facility]. Colleen Sanchez RN/Hr Coordinator
--- NOTE | 2019-11-11 16:00 | PC.NURSE ---
Shift summary: Late entry A&OX3. SBA OOB with cane. Erythema to RLE extends from above ankle to below the knee, marked with sharpie this morning by this life insurance underwriter. 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 Reports pain in RLE well-managed with Tylenol. RLE open to air, has a few small scabbed over spots on anterior khanna. Tolerated IV Vanco dosing without s/sx adverse reaction, IV site in R AC WNL. Lungs CTA, HRR sunshine (patient denied symptoms). Tele monitoring ongoing. Able to make needs known and called appropriately. Light and belongings within reach. Sleeping with CPAP on at shift change, bed alarm on.
--- NOTE | 2019-11-11 17:34 | P.HP_ITS ---
History of Present Illness History of Present Illness Date Patient Seen: 11/11/19 Time Patient Seen: 08:13 Date of Onset of Symptoms: 10/28/19 Chief complaint: rt leg/ cellulitis Narrative: Patient is 64-year-old female who was admitted to the hospital for lower extremity cellulitis with concern for possible MRSA cellulitis that failed outpatient treatment. Patient's symptoms started approximately 2 weeks ago and she was seen in the emergency department on October 31 and started on cephalexin and clindamycin. She faithfully took the medication in that presented to the ER on date of admission which was 11/10/2019 due to worsening pain, swelling, erythema despite the outpatient medications. Patient is also feeling fatigued and ?woozy?. Patient is a new patient to Dr. Johnson and was seen once via telemedicine. Patient lives in [place]. Past medical history: 1. Hypertension 2. Atrial fibrillation paroxysmal. 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 Patient has previously had ablation And has been maintained on current medications. 3. Hyperlipidemia 4. GERD 5. Chronic back pain 6. Peripheral edema 7. Venous stasis changes 8. Chronic anticoagulation with Xarelto 9. Reactive airway disease 10. Obesity 11. Allergic rhinitis 12. Depression 13. Sleep apnea 14. Anemia 15. Degenerative joint disease Allergies: Sulfa and Neurontin Past surgical history tonsillectomy Total knee replacement left knee 2019 Partial knee replacement left knee 1999 Total knee replacement right knee 2008 Partial knee replacement 1999 right knee x2 [id number] Bilateral tubal ligation 1978 Health rated behavior Patient does not use alcohol on a regular basis Patient denies history of tobacco abuse or illicit drug use Family history father age 59 had acute myocardial infarction, osteoporosis, hyperlipidemia Mom at 71 had COPD and reactive airway disease Sister with lupus, COPD, coronary artery disease age 62 Brother of car accident age 34 Another brother who had coronary artery disease, CVA, hypertension, hyperlipidemia, osteoporosis; age 65 Social history patient is . She lives in [place]. She has 3 children. 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 She is originally from [place] Review of systems: Negative for diabetes Negative for fever Negative for cough Negative for GI complaints Negative for chills Patient History Family & Social History Social History: household members children Prior Living Arrangements Mobile home Safety & Behavioral: Feels Safe in Current Yes Environment Been Physically Hurt or No Threatened By a Person Suicidal Ideation Description None Tobacco & Substance use: Smoking Status Never smoker alcohol intake frequency a few times a month Substance Use Type does not use Meds Home Medications and Allergies Home Medications Medication Instructions Recorded Confirmed Type cephalexin 500 mg PO TID #21 cap 11/01/19 11/10/19 Rx clindamycin HCl 300 mg PO TID #21 cap 11/01/19 11/10/19 Rx Adults Multivitamin 1 tab PO DAILY 11/10/19 11/10/19 History acetaminophen [Tylenol] 650 mg PO Q4H PRN 11/10/19 11/10/19 History amiodarone 200 mg PO DAILY 11/10/19 11/10/19 History atorvastatin 10 mg PO BEDTIME 11/10/19 11/10/19 History baclofen 10 mg PO DAILY 11/10/19 11/10/19 History cholecalciferol (vitamin D3) 25 mcg PO DAILY 11/10/19 11/10/19 History diltiazem HCl 240 mg PO DAILY 11/10/19 11/10/19 History famotidine 10 mg PO BEDTIME 11/10/19 11/10/19 History fluticasone propion-salmeterol 1 inh INHALATION BID 11/10/19 11/10/19 History [Advair Diskus] furosemide 80 mg PO DAILY 11/10/19 11/10/19 History lisinopril 10 mg PO DAILY 11/10/19 11/10/19 History magnesium citrate 100 mg PO BEDTIME 11/10/19 11/10/19 History meclizine 25 mg PO DAILY PRN 11/10/19 11/10/19 History meloxicam 15 mg PO DAILY 11/10/19 11/10/19 History metoprolol succinate 50 mg PO DAILY 11/10/19 11/10/19 History mometasone 2 spray INTRANASAL BEDTIME 11/10/19 11/10/19 History montelukast 10 mg PO BEDTIME 11/10/19 11/10/19 History pantoprazole 40 mg PO DAILY 11/10/19 11/10/19 History potassium chloride 20 meq PO DAILY 11/10/19 11/10/19 History pregabalin [Lyrica] 25 mg PO BID 11/10/19 11/10/19 History rivaroxaban [Xarelto] 20 mg PO BEDTIME 11/10/19 11/10/19 History vitamin [id number] acid 1 tab PO DAILY 11/10/19 11/10/19 History Allergies Allergy/AdvReac Type Severity Reaction Status Date / Time sulfanilamide Allergy Verified 11/01/19 20:15 Review of Systems Review of Systems Narrative: ROS negative other than documented in HPI Exam Vital Signs (past 8 hours): - 11/11/19 11:38 11/11/19 15:30 Temperature 98.5 F 97.7 F Pulse Rate 53 L 51 L Respiratory Rate 18 19 Blood Pressure 138/72 148/60 H Pulse Oximetry 97 95 Oxygen Delivery Method Room Air Oxygen Flow Rate 0 Narrative Exam Narrative: Afebrile vital signs are stable HEENT: Mucous membranes moist and pink without lesions Neck: Supple without adenopathy, thyromegaly, jugular venous distention or bruits Chest: Clear to auscultation without wheezes rhonchi or crackles Cor: Regular rate and rhythm without ectopy and no murmurs noted but distant S1-S2 Abdomen: Obese, Positive bowel sounds, soft, nontender, nondistended, no hepatosplenomegaly Extremities: Bilateral 1+ pitting edema right greater than left. Right lower extremity with more dependent edema over the gastrocnemius area. This is very tender. Erythema anterior tibia area has recessed from the lines that were drawn in the ER last night. Healing excoriated lesions. Warm. Pulses intact Neurologic exam is nonfocal Objective Labs Result Diagrams: 11/11/19 05:15 11/11/19 05:15 Labs: Laboratory Results - last 24 hr 11/11/19 11/11/19 11/11/19 05:15 05:15 09:30 WBC 5.2 RBC 3.26 L Hgb 10.4 L Hct 30.5 L MCV 93.6 MCH 31.9 MCHC 34.1 RDW 13.1 Plt Count 244 Neut % (Auto) 62.8 Lymph % (Auto) 25.3 [place] % (Auto) 10.2 Eos % (Auto) 0.9 L Baso % (Auto) 0.8 Neut # (Auto) 3300 Lymph # (Auto) 1300 [place] # (Auto) 500 Eos # (Auto) 0 Baso # (Auto) 0 Sodium 140 Potassium 4.1 Chloride 106 Carbon Dioxide 29 BUN 17 Creatinine 1.00 Estimated GFR 55.5 L BUN/Creatinine Ratio 17.0 Glucose 92 Calcium 9.0 Total Bilirubin 0.4 AST 30 ALT 23 Alkaline Phosphatase 58 Total Protein 6.7 Albumin 3.3 L Globulin 3.4 Albumin/Globulin Ratio 1.0 COVID-19 PCR Negative Assessment & Plan Assessment & Plan narrative: 64-year-old female with morbid obesity and venous stasis changes with peripheral edema and cellulitis that has failed outpatient treatment with appropriate oral antibiotics. Patient will be admitted to the hospital. I expect 2 over midnight stays. She will be continued on vancomycin She will be continued with movement of the leg. Of note venous Doppler was negative on admit. Blood cultures are pending. We will repeat labs in a.m.. Culture of the drainage from the cellulitis is pending We will repeat labs in a.m.. Will continue with Tylenol as needed for pain. I offered something stronger but patient declined. Assessment 2. AFib with well-controlled rate Plan: Will continue on same outpatient diltiazem, metoprolol and Xarelto and amiodarone Assessment 3. Hypertension appears well controlled Plan continue outpatient medications of diltiazem, metoprolol, lisinopril, Lasix and we will monitor kidney function. Assessment 4. Hyperlipidemia Plan: Continue on outpatient atorvastatin Assessment 5. History of gastroesophageal reflux disease Plan: Continue outpatient pantoprazole Assessment 6. DVT prophylaxis Plan: Continue on Xarelto SCDs on the left lower extremity but not on the right Encourage patient with flexion and leg exercises Assessment 7. Hypokalemia Plan continue outpatient potassium Assessment 8. Reactive airway disease stable without acute issues Plan: Continue Advair and Singulair and move made is 0 nasal spray Assessment 9. Degenerative joint disease with chronic low back pain stable Plan: Continue on Lyrica, Tylenol, baclofen Code status is full code Anticipate discharge to home pending culture results and if patient continues to progress Quality VTE Deep Vein Thrombosis/Pulmonary Embolism Present on Admission: No
[2019-11-11] MEDS: RIVAROXABAN 10 MG TABLET 20 MG PO (20:56)
[2019-11-11] MEDS: ATORVASTATIN 10 MG TABLET PO (20:56)
[2019-11-11] MEDS: MONTELUKAST 10 MG TABLET PO (20:56)
[2019-11-11] MEDS: PANTOPRAZOLE 40 MG TABLET PO (20:57)
[2019-11-12] VITALS (7 sets, daily range): BP systolic 136–156; BP diastolic 56–74; PULSE 48–62; RESP 16–18; TEMP 35.9–37.1; O2SAT 93–98
[2019-11-12] MEDS: ACETAMINOPHEN 325 MG TABLET 650 MG PO ×5 (01:26→20:03)
[2019-11-12 05:17] LABS: Add Manual Diff / Slide Review NO; Basophils Absolute Auto 0 /uL (0-100); Basophils Percent Auto 0.8 % (0-2); Eosinophils Absolute Auto 0 /uL (0-450); Eosinophils Percent Auto 0.8 % (2-4); Hematocrit 30.7 % (36-46); Hemoglobin 10.5 g/dL (12.0-16.0); Lymphocytes Absolute Auto 1400 /uL (1100-4500); Lymphocytes Percent Auto 26.8 % (25-40); Mean Corpuscular HGB Conc 34.1 % (30-36); Mean Corpuscular Volume 93.9 fL (80-100); Monocytes Absolute Auto 500 /uL (0-900); Monocytes Percent Auto 8.9 % (3-14); Neutrophils Absolute Auto 3200 /uL (1500-7000); Neutrophils Percent Auto 62.7 % (50-75); Platelet Count 227 X10^3/uL (150-400); Red Blood Cell Count 3.27 X10^6/uL (4.0-5.2); Red Cell Distribution Width 13.3 % (11.6-14.8); White Blood Cell Count 5.1 X10^3/uL (4.5-11.0)
[2019-11-12 05:26] LABS: BUN Creatinine Ratio 15.8 (6-22); Blood Urea Nitrogen 15 mg/dL (7-17); Calcium 9.1 mg/dL (8.4-10.2); Carbon Dioxide 27 mmol/L (22-32); Chloride 108 mmol/L (98-107); Estimated Glomerular Filt Rate 58.9 mL/min (>60); Glucose 97 mg/dL (80-110); HEMOLYSIS < 15 (0-50); Sodium 141 mmol/L (137-145)
[2019-11-12] MEDS: VANCOMYCIN 2,000 MG/400 ML PIGGYBACK 200 MG IV (06:03)
--- NOTE | 2019-11-12 08:29 | PM.PN.1 ---
Subjective Subjective Date Patient Seen: 11/12/19 Time Patient Seen: 08:29 Interval history: Patient had an uneventful night. She has been afebrile. Tolerating diet with no nausea or vomiting. Vancomycin infusing, erythema and edema improved. Exam Vital Signs (past 8 hours): - 11/12/19 00:58 11/12/19 04:55 Temperature 97.6 F 97.8 F Pulse Rate 52 L 53 L Respiratory Rate 18 18 Blood Pressure 139/65 146/69 H Pulse Oximetry 94 93 Oxygen Delivery Method Room Air,CPAP Oxygen Flow Rate 0 Narrative Exam Narrative: GENERAL: Alert and oriented, appearing stated age and in no acute distress. HEENT: Head normocephalic/atraumatic. LUNGS: Clear to ausculation bilaterally, no wheezes, rhonchi or rales. CV: Normal S1 and S2 with regular rate and rhythm, no audible murmurs, rubs or gallops. ABDOMEN: Soft, non-tender, non-distended, no organomegaly. Positive bowel sounds. EXTREMITIES: Right lower extremity with 5+ pitting edema to the level of knee. Erythema reduced from line of demarcation approximately mid khanna, tender to touch, weeping. Left lower extremity has 5+ pitting edema to level knee with some weeping. NEURO: Cranial nerves II through XII grossly intact, no focal deficits. PSYCH: Alert and oriented x 3. Objective Labs Result Diagrams: 11/12/19 04:56 11/12/19 04:56 Labs: Laboratory Results - last 24 hr 11/11/19 11/12/19 11/12/19 09:30 04:56 04:56 WBC 5.1 RBC 3.27 L Hgb 10.5 L Hct 30.7 L MCV 93.9 MCH 32.0 MCHC 34.1 RDW 13.3 Plt Count 227 Neut % (Auto) 62.7 Lymph % (Auto) 26.8 [place] % (Auto) 8.9 Eos % (Auto) 0.8 L Baso % (Auto) 0.8 Neut # (Auto) 3200 Lymph # (Auto) 1400 [place] # (Auto) 500 Eos # (Auto) 0 Baso # (Auto) 0 Sodium 141 Potassium 4.0 Chloride 108 H Carbon Dioxide 27 BUN 15 Creatinine 0.95 Estimated GFR 58.9 L BUN/Creatinine Ratio 15.8 Glucose 97 Calcium 9.1 COVID-19 PCR Negative Assessment & Plan Assessment & Plan narrative: 64-year-old female with morbid obesity and venous stasis changes with peripheral edema and cellulitis that has failed outpatient treatment with appropriate oral antibiotics. HD #2 Assessment 1. Weeping peripheral edema with new onset cellulitis, improved Plan: Blood cultures and wound cultures are negative. Patient is clinically improving. Will continue vancomycin and repeat labs in the morning. Assessment 2. AFib with well-controlled rate Plan: Continue home diltiazem, metoprolol, Xarelto and amiodarone Assessment 3. Hypertension, controlled Plan: Continue outpatient diltiazem, metoprolol, lisinopril, and lasix. Will trend labs to monitor kidney function. Assessment 4. Hyperlipidemia Plan: Continue on outpatient atorvastatin Assessment 5. History of gastroesophageal reflux disease Plan: Continue outpatient pantoprazole Assessment 6. DVT prophylaxis Plan: Continue on Xarelto. SCDs on the left lower extremity but not on the right. Encourage patient with flexion and leg exercises. Assessment 7. Hypokalemia Plan: Continue outpatient potassium Assessment 8. Reactive airway disease, stable without acute issues Plan: Continue Advair and Singulair and mometasone nasal spray Assessment 9. Degenerative joint disease with chronic low back pain stable Plan: Continue on Lyrica, Tylenol, baclofen Assessment 10. Anemia, normocytic/normochromic, likely dilutional. Plan: Will trend labs. Code status is full code Quality VTE Deep Vein Thrombosis/Pulmonary Embolism Present on Admission: No
[2019-11-12] MEDS: FUROSEMIDE 40 MG TABLET 80 MG PO (09:48)
[2019-11-12] MEDS: SODIUM CHLORIDE 0.9% 1,000 ML 125 ML IV ×2 (09:48→19:04)
[2019-11-12] MEDS: POTASSIUM CHLORIDE 20 MEQ TAB PO (09:48)
[2019-11-12] MEDS: FLUTICASONE/SALMETEROL 250/50 60 PUFF DISKUS INH ×2 (09:49→20:42)
[2019-11-12] MEDS: lisinopriL 10 MG TABLET PO (09:49)
[2019-11-12] MEDS: MONTELUKAST 10 MG TABLET PO (09:49)
[2019-11-12] MEDS: MOMETASONE 120 SPRAY/17 GM NASAL SPRAY NASAL (09:49)
[2019-11-12] MEDS: dilTIAZem CD 240 MG CAP PO (09:53)
[2019-11-12] MEDS: AMIODARONE 200 MG TABLET PO (09:53)
[2019-11-12] MEDS: PREGABALIN 25 MG CAPSULE PO ×2 (09:56→20:03)
--- NOTE | 2019-11-12 15:43 | PC.NURSE ---
Shift summary: A&O X3. Erythema and edema to RLE appear to have lessened since yesterday. Erythema receding within marked margins and patient reports RLE feeling definitely better today than it was yesterday. CMS+ WNL (has chronic numbness/tingling to BLE's but nothing new). Pain in RLE well-managed with Tylenol. See nursing assessment for other details. Calls appropriately with needs/concerns. Resting in bed at shift change with CPAP on. Call light and belongings within reach, bed alarm on.
[2019-11-12] MEDS: ATORVASTATIN 10 MG TABLET PO (20:03)
[2019-11-12] MEDS: RIVAROXABAN 10 MG TABLET 20 MG PO (20:03)
[2019-11-12] MEDS: PANTOPRAZOLE 40 MG TABLET PO (20:05)
[2019-11-13] VITALS (9 sets, daily range): BP systolic 133–156; BP diastolic 57–87; PULSE 56–73; RESP 16–18; TEMP 35.8–37.1; O2SAT 95–96
[2019-11-13] MEDS: VANCOMYCIN TROUGH 1 REQUEST MISC (00:32)
[2019-11-13] MEDS: VANCOMYCIN 2,000 MG/400 ML PIGGYBACK 200 MG IV ×2 (01:14→18:16)
[2019-11-13] MEDS: ACETAMINOPHEN 325 MG TABLET 650 MG PO ×5 (02:19→22:02)
[2019-11-13 05:55] LABS: Add Manual Diff / Slide Review NO; BUN Creatinine Ratio 16.9 (6-22); Basophils Absolute Auto 100 /uL (0-100); Basophils Percent Auto 0.8 % (0-2); Blood Urea Nitrogen 15 mg/dL (7-17); Calcium 9.3 mg/dL (8.4-10.2); Carbon Dioxide 26 mmol/L (22-32); Chloride 107 mmol/L (98-107); Eosinophils Absolute Auto 100 /uL (0-450); Eosinophils Percent Auto 0.9 % (2-4); Estimated Glomerular Filt Rate > 60.0 mL/min (>60); Glucose 98 mg/dL (80-110); HEMOLYSIS < 15 (0-50); Hematocrit 31.6 % (36-46); Hemoglobin 10.6 g/dL (12.0-16.0); Lymphocytes Absolute Auto 1400 /uL (1100-4500); Lymphocytes Percent Auto 21.3 % (25-40); Mean Corpuscular HGB Conc 33.4 % (30-36); Mean Corpuscular Hemoglobin 31.2 PG (26-34); Mean Corpuscular Volume 93.3 fL (80-100); Monocytes Absolute Auto 500 /uL (0-900); Monocytes Percent Auto 7.9 % (3-14); Neutrophils Absolute Auto 4500 /uL (1500-7000); Neutrophils Percent Auto 69.1 % (50-75); Platelet Count 238 X10^3/uL (150-400); Red Blood Cell Count 3.39 X10^6/uL (4.0-5.2); Sodium 141 mmol/L (137-145); White Blood Cell Count 6.5 X10^3/uL (4.5-11.0)
--- NOTE | 2019-11-13 08:21 | PC.NURSE ---
Patient laying in bed this morning with home CPAP on and eyes closed, awakens easily. Patient states she is doing much better, but reports she did not sleep well overnight. Right lower extremity now with decreased redness and swelling noted receded from bower outlined. Patient states she is comfortable at this time, wanting to rest until breakfast.
[2019-11-13] MEDS: POTASSIUM CHLORIDE 20 MEQ TAB PO (09:06)
[2019-11-13] MEDS: AMIODARONE 200 MG TABLET PO (09:06)
[2019-11-13] MEDS: FUROSEMIDE 40 MG TABLET 80 MG PO (09:07)
[2019-11-13] MEDS: dilTIAZem CD 240 MG CAP PO (09:07)
[2019-11-13] MEDS: lisinopriL 10 MG TABLET PO (09:08)
[2019-11-13] MEDS: MOMETASONE 120 SPRAY/17 GM NASAL SPRAY NASAL (09:10)
[2019-11-13] MEDS: MONTELUKAST 10 MG TABLET PO (09:10)
[2019-11-13] MEDS: PREGABALIN 25 MG CAPSULE PO ×2 (09:14→22:01)
[2019-11-13] MEDS: FLUTICASONE/SALMETEROL 250/50 60 PUFF DISKUS INH ×2 (09:56→19:18)
--- NOTE | 2019-11-13 11:24 | PC.NURSE ---
history of MRSA per patient and microbiology now showing staph species (light growth) on wound culture with sensitivities and final results pending. Placed on contact isolation per protocol and educated patient.
--- NOTE | 2019-11-13 12:39 | PM.PN.1 ---
Subjective Subjective Date Patient Seen: 11/13/19 Time Patient Seen: 12:39 Interval history: Patient slept poorly overnight but her leg is feeling better, less swelling and erythema. Vancomycin continues to be infusing, pharmacy managing trough levels. Afebrile throughout. Tolerating full diet, no nausea vomiting. Exam Vital Signs (past 8 hours): - 11/13/19 09:08 11/13/19 09:31 11/13/19 09:57 Pulse Rate 66 Blood Pressure 133/58 L Pulse Oximetry 95 95 Oxygen Delivery Method Room Air Oxygen Flow Rate 0 Narrative Exam Narrative: GENERAL: Alert and oriented, appearing stated age and in no acute distress. HEENT: Head normocephalic/atraumatic. LUNGS: Clear to ausculation bilaterally, no wheezes, rhonchi or rales. CV: Normal S1 and S2 with regular rate and rhythm, no audible murmurs, rubs or gallops. ABDOMEN: Soft, non-tender, non-distended, no organomegaly. Positive bowel sounds. EXTREMITIES: Right lower extremity with 5+ pitting edema to the level of knee. Erythema again reduced from line of demarcation approximately mid khanna, remains tender to touch, weeping ulcers now crusted. Left lower extremity has 5+ pitting edema to level knee with some weeping. NEURO: Cranial nerves II through XII grossly intact, no focal deficits. PSYCH: Alert and oriented x 3. Objective Labs Result Diagrams: 11/13/19 05:09 11/13/19 05:09 Labs: Laboratory Results - last 24 hr 11/13/19 11/13/19 11/13/19 00:23 05:09 05:09 WBC 6.5 RBC 3.39 L Hgb 10.6 L Hct 31.6 L MCV 93.3 MCH 31.2 MCHC 33.4 RDW 13.0 Plt Count 238 Neut % (Auto) 69.1 Lymph % (Auto) 21.3 L [place] % (Auto) 7.9 Eos % (Auto) 0.9 L Baso % (Auto) 0.8 Neut # (Auto) 4500 Lymph # (Auto) 1400 [place] # (Auto) 500 Eos # (Auto) 100 Baso # (Auto) 100 Sodium 141 Potassium 4.0 Chloride 107 Carbon Dioxide 26 BUN 15 Creatinine 0.89 Estimated GFR > 60.0 BUN/Creatinine Ratio 16.9 Glucose 98 Calcium 9.3 Vancomycin Trough 13.0 Assessment & Plan Assessment & Plan narrative: 64-year-old female with morbid obesity and venous stasis changes with peripheral edema and cellulitis that has failed outpatient treatment with appropriate oral antibiotics. HD #3 Assessment 1. Weeping peripheral edema with new onset cellulitis, improved Plan: Blood cultures and wound cultures are negative. Patient is clinically improving. Will continue vancomycin and repeat labs in the morning. Assessment 2. AFib with well-controlled rate Plan: Continue home diltiazem, metoprolol, Xarelto and amiodarone. Assessment 3. Hypertension, controlled at home, but has been labile in the hospital Plan: Continue outpatient diltiazem, metoprolol, lisinopril, and lasix. Will continue to trend labs to monitor kidney function. Assessment 4. Hyperlipidemia Plan: Continue on outpatient atorvastatin. Assessment 5. History of gastroesophageal reflux disease Plan: Continue outpatient pantoprazole. Assessment 6. DVT prophylaxis Plan: Continue on Xarelto. SCDs on the left lower extremity but not on the right. Encourage patient with flexion and leg exercises. Assessment 7. Hypokalemia, controlled Plan: Continue outpatient potassium. Assessment 8. Reactive airway disease, stable without acute issues Plan: Continue Advair and Singulair and mometasone nasal spray. Assessment 9. Degenerative joint disease with chronic low back pain stable Plan: Continue on Lyrica, Tylenol, and baclofen. Assessment 10. Anemia, normocytic/normochromic, likely dilutional. Plan: Will trend labs. Code status is full code Quality VTE Deep Vein Thrombosis/Pulmonary Embolism Present on Admission: No
--- NOTE | 2019-11-13 20:16 | DI.RAD.S_ITS ---
PROCEDURE: XR CHEST FOR PICC 1V INDICATIONS: PICC placement COMPARISON: None. FINDINGS: PICC was placed by the intravenous therapy team from the right side. Fluoroscopic spot film demonstrates the tip of PICC projecting to the area of distal SVC. Presence of registered nurse cardiac. IMPRESSION: Tip of PICC projects to the area of distal SVC Dictated by: Paige Belcher MD, PhD on 11/13/2019 at 20:51 Approved by: Paige Belcher MD, PhD on 11/13/2019 at 20:51
[2019-11-13] MEDS: PANTOPRAZOLE 40 MG TABLET PO (22:01)
[2019-11-13] MEDS: RIVAROXABAN 10 MG TABLET 20 MG PO (22:02)
[2019-11-13] MEDS: ATORVASTATIN 10 MG TABLET PO (22:02)
[2019-11-14] VITALS (8 sets, daily range): BP systolic 138–156; BP diastolic 60–84; PULSE 51–68; RESP 14–18; TEMP 36.1–36.9; O2SAT 94–97
[2019-11-14] MEDS: ACETAMINOPHEN 325 MG TABLET 650 MG PO ×4 (03:09→20:37)
[2019-11-14 05:47] LABS: Add Manual Diff / Slide Review NO; Basophils Absolute Auto 100 /uL (0-100); Basophils Percent Auto 0.9 % (0-2); Eosinophils Absolute Auto 100 /uL (0-450); Eosinophils Percent Auto 0.9 % (2-4); Hematocrit 34.9 % (36-46); Hemoglobin 11.8 g/dL (12.0-16.0); Lymphocytes Absolute Auto 1400 /uL (1100-4500); Mean Corpuscular HGB Conc 33.7 % (30-36); Mean Corpuscular Hemoglobin 31.5 PG (26-34); Mean Corpuscular Volume 93.5 fL (80-100); Monocytes Absolute Auto 500 /uL (0-900); Monocytes Percent Auto 8.1 % (3-14); Neutrophils Absolute Auto 4500 /uL (1500-7000); Neutrophils Percent Auto 69.1 % (50-75); Platelet Count 258 X10^3/uL (150-400); Red Blood Cell Count 3.73 X10^6/uL (4.0-5.2); Red Cell Distribution Width 13.3 % (11.6-14.8); White Blood Cell Count 6.6 X10^3/uL (4.5-11.0)
[2019-11-14 05:58] LABS: BUN Creatinine Ratio 23.3 (6-22); Blood Urea Nitrogen 20 mg/dL (7-17); Carbon Dioxide 29 mmol/L (22-32); Chloride 104 mmol/L (98-107); Estimated Glomerular Filt Rate > 60.0 mL/min (>60); Glucose 106 mg/dL (80-110); HEMOLYSIS < 15 (0-50); Sodium 140 mmol/L (137-145)
[2019-11-14] MEDS: FLUTICASONE/SALMETEROL 250/50 60 PUFF DISKUS INH ×2 (08:44→19:59)
--- NOTE | 2019-11-14 09:26 | PC.NURSE ---
At 0800 Pt. said she wanted to sleep and wasn't ready for breakfast yet. 0930 Pt still sleeping and not wanting breakfast.
[2019-11-14] MEDS: FUROSEMIDE 40 MG TABLET 80 MG PO (09:51)
[2019-11-14] MEDS: lisinopriL 10 MG TABLET PO (09:52)
[2019-11-14] MEDS: MONTELUKAST 10 MG TABLET PO (09:52)
[2019-11-14] MEDS: dilTIAZem CD 240 MG CAP PO (09:53)
[2019-11-14] MEDS: MOMETASONE 120 SPRAY/17 GM NASAL SPRAY NASAL (09:53)
[2019-11-14] MEDS: AMIODARONE 200 MG TABLET PO (09:53)
[2019-11-14] MEDS: POTASSIUM CHLORIDE 20 MEQ TAB PO (09:53)
[2019-11-14] MEDS: PREGABALIN 25 MG CAPSULE PO ×2 (09:55→20:37)
--- NOTE | 2019-11-14 10:25 | PM.PN.1 ---
Subjective Subjective Date Patient Seen: 11/14/19 Time Patient Seen: 10:25 Interval history: Patient's IV failed overnight, replaced with PICC line; vancomycin dose thus slightly late. Otherwise, doing well. Leg continues to improve but is still painful and red, blood pressures have been elevated because of this. Vancomycin infusing, pharmacy managing trough levels. Afebrile throughout. Tolerating full diet, no nausea vomiting. Exam Vital Signs (past 8 hours): - 11/14/19 04:21 11/14/19 07:25 11/14/19 09:52 Temperature 97.7 F 97.0 F L Pulse Rate 68 56 L Respiratory Rate 18 18 Blood Pressure 156/84 H 145/78 H 145/78 H Pulse Oximetry 97 94 Oxygen Delivery Method Room Air Oxygen Flow Rate 0 Narrative Exam Narrative: GENERAL: Alert and oriented, appearing stated age and in no acute distress. HEENT: Head normocephalic/atraumatic. LUNGS: Clear to ausculation bilaterally, no wheezes, rhonchi or rales. CV: Normal S1 and S2 with regular rate and rhythm, no audible murmurs, rubs or gallops. ABDOMEN: Soft, non-tender, non-distended, no organomegaly. Positive bowel sounds. EXTREMITIES: Right lower extremity with 5+ pitting edema to the level of knee. Erythema again reduced from line of demarcation approximately mid khanna, remains tender to touch, weeping ulcers now crusted. Left lower extremity has 5+ pitting edema to level knee with some weeping. NEURO: Cranial nerves II through XII grossly intact, no focal deficits. PSYCH: Alert and oriented x 3. Objective Labs Result Diagrams: 11/14/19 05:40 11/14/19 05:40 Labs: Laboratory Results - last 24 hr 11/14/19 11/14/19 05:40 05:40 WBC 6.6 RBC 3.73 L Hgb 11.8 L Hct 34.9 L MCV 93.5 MCH 31.5 MCHC 33.7 RDW 13.3 Plt Count 258 Neut % (Auto) 69.1 Lymph % (Auto) 21.0 L [place] % (Auto) 8.1 Eos % (Auto) 0.9 L Baso % (Auto) 0.9 Neut # (Auto) 4500 Lymph # (Auto) 1400 [place] # (Auto) 500 Eos # (Auto) 100 Baso # (Auto) 100 Sodium 140 Potassium 4.0 Chloride 104 Carbon Dioxide 29 BUN 20 H Creatinine 0.86 Estimated GFR > 60.0 BUN/Creatinine Ratio 23.3 H Glucose 106 Calcium 10.0 Assessment & Plan Assessment & Plan narrative: 64-year-old female with morbid obesity and venous stasis changes with peripheral edema and cellulitis that has failed outpatient treatment with appropriate oral antibiotics. HD #4 Assessment 1. Weeping peripheral edema with new onset cellulitis, improved Plan: Blood cultures negative. Wound cultures showed staph epidermidis resistant to clindamycin, erythromycin, oxacillin.. Patient is clinically improving. Will continue vancomycin and repeat labs in the morning. Will start PT/OT. Assessment 2. AFib with well-controlled rate Plan: Continue home diltiazem, metoprolol, Xarelto and amiodarone. Assessment 3. Hypertension, controlled at home, but has been labile in the hospital, likely secondary to pain Plan: Continue outpatient diltiazem, metoprolol, lisinopril, and lasix. Will continue to trend labs to monitor kidney function and treat underlying cellulitis that is causing her pain. Assessment 4. Hyperlipidemia Plan: Continue on outpatient atorvastatin. Assessment 5. History of gastroesophageal reflux disease Plan: Continue outpatient pantoprazole. Assessment 6. DVT prophylaxis Plan: Continue on Xarelto. SCDs on the left lower extremity but not on the right. Encourage patient with flexion and leg exercises. Assessment 7. Hypokalemia, controlled Plan: Continue outpatient potassium. Assessment 8. Reactive airway disease, stable without acute issues Plan: Continue Advair and Singulair and mometasone nasal spray. Assessment 9. Degenerative joint disease with chronic low back pain stable Plan: Continue on Lyrica, Tylenol, and baclofen. Assessment 10. Anemia, normocytic/normochromic, likely dilutional, IV now hep-locked and trending up. Plan: Will trend labs. Code status is full code Quality VTE Deep Vein Thrombosis/Pulmonary Embolism Present on Admission: No
--- NOTE | 2019-11-14 14:29 | OT.IP.EVAL ---
Current Diagnoses Cellulitis of left lower limb (11/10/19) Past Medical History (Last Reviewed 11/01/19 @ 21:52 by Lili New MD) Atrial fibrillation (Acute) History of MRSA infection (Acute) Venous insufficiency (Acute) Occupational Therapy Inpatient Evaluation/Re-Eval M1 PT/OT-IP Prior Functional Status Start: 11/14/19 16:45 Freq: NEEDED Status: Active Protocol: Document 11/14/19 14:05 [facility] (Rec: 11/14/19 17:20 [facility] [id number]) Medical Review Prior Functional Status Medical History Reviewed Yes Communication Independent Mobility and Gait Pt use of SPC outdoors and at times furniture walks in the house. Activities of Daily Living and IADL's Completely independent with all ADl and IADl needs. Social History Household Members children Living Arrangements Mobile home Number of Stairs To Enter/Railing? 3 steps from the front and 4 steps with bilateral rails from the back. Pt prefers to get in from the back as it is closer to access than the front. Home Environment Standard Height Toilet,Tub/ Shower Home Equipment Front Wheel Walker,Straight Cane,Grab Bars In Shower Additional Social History Comment Pt has a three point cane. M2 OT-IP Current Condition Start: 11/14/19 16:45 Freq: Status: Active Protocol: Document 11/14/19 14:05 [facility] (Rec: 11/14/19 17:20 [facility] [id number]) Occupational Therapy Current Condition Current Condition Evaluation Date 11/14/19 Treatment Diagnosis Cellultis for RLE Diagnosis Onset Date 11/10/19 Weight Bearing Status Weight Bearing Status Weight Bear as Tolerated M3 OT- IP Subjective and Pain Start: 11/14/19 16:45 Freq: Status: Active Protocol: Document 11/14/19 14:05 [facility] (Rec: 11/14/19 17:20 [facility] [id number]) OT- Subjective Occupational Therapy Visit Type Type Initial Evaluation Visit Start Time 14:05 Visit Stop Time 14:29 Total Visit Minutes 24 Occupational Therapy Visit Comments Patient Comments Pt agreed to get up for OT eval. Patient/Caregiver Goals To go home. OT Pain Assessment Pain When Pain Assessed At Rest Pain Present Pain Present Pain Reported Location Right Lower Leg Intensity 3 Scale Used Numeric (1 - 10) M4 OT- IP ADL's Start: 11/14/19 16:45 Freq: Status: Active Protocol: Document 11/14/19 14:05 [facility] (Rec: 11/14/19 17:20 [facility] [id number]) OT [id number] Comments OT Self-Feeding Comments Not at meal time. OT ADL-Grooming General Evaluation Grooming Ability Standby Assistance OT ADL-Oral Care General Eval Oral Care Ability Independent OT ADL-Dressing General Eval Lower Body Dressing Ability Standby Assistance Areas Needing Assistance Underpants/Brief,Socks Comments OT Dressing Comments Pt able to cross her legs over to [place] her socks. Pt able to do her brief management with SBA. OT ADL-Toileting General Evaluation Toileting Ability Standby Assistance Comments OT Toileting Comments Mainly SBA as having to help pt manage the IV pole. OT ADL-Bathing Comments OT Bathing Comments Pt not wanting to shower at this time. M5 OT- IP IADL's Start: 11/14/19 16:45 Freq: Status: Active Protocol: Document 11/14/19 14:05 [facility] (Rec: 11/14/19 17:20 [facility] [id number]) OT-Instrumental Activities of Daily Living Home Safety Awareness Awareness of Need for Assistance at Home Good Awareness Ability to Problem Solve Emergency Able to Problem Solve Situations Medication Management Medication Management No Deficits Identified Money Management Money Management No Deficits Identified Meal Preparation Meal Preparation Caregiver Provides Assist Chopper Gun Operator Chopper Gun Operator Caregiver Provides Assist M6 OT- IP Functional Cognition Start: 11/14/19 16:45 Freq: Status: Active Protocol: Document 11/14/19 14:05 [facility] (Rec: 11/14/19 17:20 [facility] [id number]) Cognitive Factors Limiting Selfcare Function Cognitive Ability Level of Alertness Alert Attention Span Ability Capable of Focused Attention, Capable of Sustained Attention Ability to Follow Commands Able to Follow Multi-Step Commands Memory Description No Deficits Noted Cognitive Comments Cognitive Assessment Comments Pt appears at baseline at this time with no cognitive deficits. OT- Vision and Hearing OT- Hearing Assessment OT- Hearing Assessment WFL OT- Vision Assessment Visual Acuity Glasses All The Time M7 OT- IP Mobility and Balance Start: 11/14/19 16:45 Freq: Status: Active Protocol: Document 11/14/19 14:05 [facility] (Rec: 11/14/19 17:20 [facility] [id number]) OT- Bed Mobility Assessment Rolling Level of Assistance Standby Assistance Supine to Sit Supine to Sit Assist Standby Assistance Sit to Supine Sit to Supine Assist Standby Assistance OT-Transfer Assessment Sit to and From Stand Sit to and from Stand Standby Assistance Transfers Transfer Ability Standby Assistance Technique Transfer Destination Bed,Chair,Toilet Transfer Technique Stand Step Pivot Devices Transfer Assistive Devices Gait Belt,Straight Cane Comments Mobility Comments Pt has history of back pain and able to educate pt on log rolling to assist to get into the bed. Pt able to practice and now states her back does not hurt while getting into bed now. OT- Gait Assessment Gait Gait Assistance Required: Standby Assistance Assistive Devices Assistive Device Gait Belt,Straight Cane Comments Gait Ability Comments SBA with SPC, pt needing assist to move IV pole. OT- Balance Assessment Sitting Balance and Reactions Static Sitting Balance Ability Normal Dynamic Sitting Balance Ability Good Standing Balance and Reactions Static Standing Balance Ability Good M8 OT- IP Objective Assessments Start: 11/14/19 16:45 Freq: Status: Active Protocol: Document 11/14/19 14:05 [facility] (Rec: 11/14/19 17:20 [facility] [id number]) OT Gross Range of Motion Upper Extremity Range of Motion Assessment Within Functional Limits OT Strength Upper Extremity Strength Assessment Within Functional Limits OT-Muscle Tone Assessment Muscle Tone WNL Yes M9 OT- IP Assessment and Plan Start: 11/14/19 16:45 Freq: Status: Active Protocol: Document 11/14/19 14:05 [facility] (Rec: 11/14/19 17:20 [facility] [id number]) OT Summary Assessment and Plan Potential Rehabilitation Potential Excellent Analytic Complexity at Evaluation Low Summary OT Impairments Pain,Functional Mobility, Dressing,Toileting,Bathing, Activity Tolerance Progress Towards Goals Progressing Toward Goals Goals Grooming Goal Independent Dressing Goal Independent Toileting Goal Independent Bathing Goal Independent Toilet Transfer Goal Independent Shower Transfer Goal Independent Patient/Caregiver Education Goal Demonstrate Energy Conservation and Pacing OT-Other Goals Pt able to have good understanding for fall prevention strategies and for energy conservation. Days to Meet Goals 2 Frequency of Treatment Frequency Of Treatment Once a Day Treatment Plan OT Treatment Plan ADL Training,Functional Mobility,Patient/Family Education,Discharge Planning Other Treatment Recommendations and Next Shower Treatment Focus Discharge Recommendations OT Discharge Recommendations Home with Assistance Home Equipment Needs Shower chair? Transportation Needs at Discharge Private Vehicle
[2019-11-14] MEDS: VANCOMYCIN 2,000 MG/400 ML PIGGYBACK 200 MG IV (14:36)
--- NOTE | 2019-11-14 15:20 | PT.IIE ---
Current Diagnoses Cellulitis of left lower limb (11/10/19) Medical History (Last Reviewed 11/01/19 @ 21:52 by Lili New MD) Atrial fibrillation (Acute) History of MRSA infection (Acute) Venous insufficiency (Acute) Physical Therapy Inpatient Evaluation/Re-Eval M1 PT/OT-IP Prior Functional Status Start: 11/14/19 16:45 Freq: NEEDED Status: Active Protocol: Document 11/14/19 14:05 [facility] (Rec: 11/14/19 17:20 [facility] [id number]) Medical Review Prior Functional Status Medical History Reviewed Yes Communication Independent Mobility and Gait Pt use of SPC outdoors and at times furniture walks in the house. Activities of Daily Living and IADL's Completely independent with all ADl and IADl needs. Social History Household Members children Living Arrangements Mobile home Number of Stairs To Enter/Railing? 3 steps from the front and 4 steps with bilateral rails from the back. Pt prefers to get in from the back as it is closer to access than the front. Home Environment Standard Height Toilet,Tub/ Shower Home Equipment Front Wheel Walker,Straight Cane,Grab Bars In Shower Additional Social History Comment Pt has a three point cane. M1 PT/OT-IP Prior Functional Status Start: 11/14/19 17:34 Freq: NEEDED Status: Active Protocol: Document 11/14/19 15:20 [facility] (Rec: 11/14/19 17:47 AB [id number]) Medical Review Prior Functional Status Medical History Reviewed Yes Communication able to make needs known Mobility and Gait pt stated that she is modified independent with mobility and ambulation without AD indoors but stated that her trailer is small and that she holds around the wall/furniture for support, occasionally uses her hurrycane indoors but uses it more outdoors but at times uses her 4WW when she walks her dog Social History Household Members children Living Arrangements Mobile home Number of Stairs To Enter/Railing? 3 steps from the front with bilateral rails 4 steps with bilateral rails from the back (pt prefers going through the back) Home Environment Standard Height Toilet,Tub/ Shower Home Equipment Front Wheel Walker,Straight Cane,Hand Held Shower,Grab Bars In Shower Additional Social History Comment pt has a hurrycane M2 PT-IP Current Condition Start: 11/14/19 17:34 Freq: NEEDED Status: Active Protocol: Document 11/14/19 15:20 [facility] (Rec: 11/14/19 17:47 AB [id number]) Physical Therapy Current Condition Current Condition Evaluation Date 11/14/19 Treatment Diagnosis RLE cellulitis; difficulty in walking Onset Date 11/10/19 Precautions Other Precautions contact precautions M3 PT-IP Subjective Start: 11/14/19 17:34 Freq: NEEDED Status: Active Protocol: Document 11/14/19 15:20 [facility] (Rec: 11/14/19 17:47 AB [id number]) Subjective Physical Therapy Visit Type Type Initial Evaluation Visit Start Time 15:20 Visit Stop Time 16:02 Total Visit Minutes 42 Number of NEWSPAPER EDITOR Visits 0 Physical Therapy Visit Comments Patient Comments pt agreeable to do PT Therapy Pain Assessment Pain When Pain Assessed At Rest Pain Present Pain Present Pain Reported Location Back Intensity 5 Scale Used Numeric (1 - 10) Pain Management Techniques Re-positioning,Timing of Activity with Medications Right Lower Leg Intensity 2 Scale Used Numeric (1 - 10) Pain Management Techniques Re-positioning,Timing of Activity with Medications M4 PT-IP Mobility and Gait Start: 11/14/19 17:34 Freq: NEEDED Status: Active Protocol: Document 11/14/19 15:20 [facility] (Rec: 11/14/19 17:47 AB [id number]) PT-Bed Mobility Assessment Supine to Sit Supine to Sit Standby Assistance Sit to Supine Sit to Supine Standby Assistance PT-Transfer Assessment Sit to and From Stand Sit to and from Stand Standby Assistance,1 Person Assistance,Use of Upper Extremities Equipment Transfer Assistive Device Gait Belt,Tripod Cane/Hurry Cane Orthotic/Prosthetic Devices or Brace: No Transfers Transfer Destination Bed,Chair Transfer Technique Stand Step Pivot Transfer Ability Level of Assist Standby Assistance Gait Assessment Gait Gait Assistance Required: Standby Assistance Distance (Feet) 50 Able to Maintain Weight Bearing Status Yes During Gait Assistive Devices Assistive Device Gait Belt,Tripod Cane/Hurry Cane Orthotic/Prosthetic Devices or Brace: No Gait Deviations General Gait Pattern Antalgic,Decreased Stride Length,Decreased Feet Clearance,Lateral Trunk Lean, Step-to Gait Factors Limiting Gait Function Factors Limiting Gait Function Decreased Activity Tolerance, Decreased Strength,Limited Range of Motion,Pain,Poor Balance Comments Gait Comments pt stated that R knee tends to give out and has previous knee surgeries but LBP also contributes to knee weakness. pt knows when knee gives out but pt able to control and steady self without assistance PT-Balance Assessment Sitting Balance and Reactions Static Sitting Balance Ability Good Dynamic Sitting Balance Ability Good Standing Balance and Reactions Static Standing Balance Ability Fair Dynamic Standing Balance Ability Fair Device Used hurrycane M5 PT-IP Objective Assessments Start: 11/14/19 17:34 Freq: NEEDED Status: Active Protocol: Document 11/14/19 15:20 [facility] (Rec: 11/14/19 17:47 AB [id number]) Orientation Orientation/Cognition Level of Alertness Alert Orientation Name,Age,Birthday,Month,Date, Year,Day of Week,Place, Situation Language Function Ability No Deficits Noted Safety Awareness Understands Safety Issues Memory Description No Deficits Noted Gross Range of Motion Lower Extremity ROM Assessment Within Functional Limits Strength Lower Extremity Strength Assessment Bilaterally Impaired Hip 4-/5 Knee 4-/5 Coordination Assessment Gross Coordination Gross Coordination WNL Sensation Assessment Sensation Gross Sensation WNL Muscle Tone Muscle Tone WNL Yes M6 PT-IP Treatment Start: 11/14/19 17:34 Freq: NEEDED Status: Active Protocol: Document 11/14/19 15:20 [facility] (Rec: 11/14/19 17:47 AB [id number]) Physical Therapy Treatment Education Education Provided Precautions,Safety M7 PT-IP Assessment and Plan Start: 11/14/19 17:34 Freq: NEEDED Status: Active Protocol: Document 11/14/19 15:20 AB (Rec: 11/14/19 17:47 AB [id number]) PT Summary Assessment and Plan Potential Rehabilitation Potential Good Status of Condition at Evaluation Stable Summary Impairments Pain,ROM,Strength,Balance,Bed Mobility,Transfers,Gait, Activity Tolerance Assessment Summary pt requiring SBA with mobility and stated that family will be able to assist her if needed. will have to complete stair climbing training prior to d/c and will benefit from outpt PT to address balance, LE strength, activity tolerance to improve independence . Goals Bed Mobility Goal Independent Transfer Goal Independent,Cane Gait Goal Independent,Cane Gait Distance 150 Other Goals up/down 4 steps bilateral rails SBA Days to Meet Goals 5 Frequency of Treatment Frequency Of Treatment Once a Day Treatment Plan Physical Therapy Treatment Plan Bed Mobility Training,Transfer Training,Gait Training, Therapeutic Exercise,Balance Retraining,Discharge Planning, Hot or Cold Pack,Neuromuscular Re-ed Recommendations To Nursing Amount of Assist Needed Standby Assistance Discharge Recommendations PT Discharge Recommendations Home with Assistance, Outpatient PT Transportation Needs at Discharge Private Vehicle
[2019-11-14] MEDS: ATORVASTATIN 10 MG TABLET PO (20:37)
[2019-11-14] MEDS: RIVAROXABAN 10 MG TABLET 20 MG PO (20:37)
[2019-11-14] MEDS: PANTOPRAZOLE 40 MG TABLET PO (20:41)
[2019-11-15] VITALS (9 sets, daily range): BP systolic 122–160; BP diastolic 52–89; PULSE 55–67; RESP 14–20; TEMP 36.2–36.8; O2SAT 93–98
[2019-11-15] MEDS: ACETAMINOPHEN 325 MG TABLET 650 MG PO ×5 (00:18→19:32)
[2019-11-15 05:38] LABS: Add Manual Diff / Slide Review NO; Basophils Absolute Auto 0 /uL (0-100); Basophils Percent Auto 0.6 % (0-2); Eosinophils Absolute Auto 0 /uL (0-450); Eosinophils Percent Auto 0.5 % (2-4); Hematocrit 34.5 % (36-46); Hemoglobin 11.8 g/dL (12.0-16.0); Lymphocytes Absolute Auto 1400 /uL (1100-4500); Lymphocytes Percent Auto 23.6 % (25-40); Mean Corpuscular HGB Conc 34.2 % (30-36); Mean Corpuscular Hemoglobin 31.9 PG (26-34); Mean Corpuscular Volume 93.3 fL (80-100); Monocytes Absolute Auto 600 /uL (0-900); Neutrophils Absolute Auto 3900 /uL (1500-7000); Neutrophils Percent Auto 65.3 % (50-75); Platelet Count 247 X10^3/uL (150-400); Red Cell Distribution Width 13.1 % (11.6-14.8); White Blood Cell Count 5.9 X10^3/uL (4.5-11.0)
[2019-11-15 05:47] LABS: BUN Creatinine Ratio 26.9 (6-22); Blood Urea Nitrogen 25 mg/dL (7-17); Calcium 9.8 mg/dL (8.4-10.2); Carbon Dioxide 30 mmol/L (22-32); Chloride 103 mmol/L (98-107); Estimated Glomerular Filt Rate > 60.0 mL/min (>60); Glucose 96 mg/dL (80-110); HEMOLYSIS < 15 (0-50); Potassium 3.9 mmol/L (3.4-5.1); Sodium 137 mmol/L (137-145)
[2019-11-15] MEDS: VANCOMYCIN 2,000 MG/400 ML PIGGYBACK 200 MG IV (06:42)
[2019-11-15] MEDS: MOMETASONE 120 SPRAY/17 GM NASAL SPRAY NASAL (08:12)
[2019-11-15] MEDS: AMIODARONE 200 MG TABLET PO (08:12)
[2019-11-15] MEDS: dilTIAZem CD 240 MG CAP PO (08:12)
[2019-11-15] MEDS: FUROSEMIDE 40 MG TABLET 80 MG PO (08:14)
[2019-11-15] MEDS: MONTELUKAST 10 MG TABLET PO (08:14)
[2019-11-15] MEDS: lisinopriL 10 MG TABLET PO (08:14)
[2019-11-15] MEDS: POTASSIUM CHLORIDE 20 MEQ TAB PO (08:15)
[2019-11-15] MEDS: PREGABALIN 25 MG CAPSULE PO ×2 (08:19→21:07)
--- NOTE | 2019-11-15 08:20 | PM.PN.1 ---
Subjective Subjective Date Patient Seen: 11/15/19 Time Patient Seen: 08:20 Interval history: Uneventful night, doing well. Leg continues to improve but remains painful and red, blood pressures have been elevated because of this. Vancomycin infusing, pharmacy managing trough levels. Afebrile throughout. Tolerating full diet, no nausea vomiting. Exam Vital Signs (past 8 hours): - 11/15/19 00:27 11/15/19 04:35 Temperature 97.7 F 97.4 F L Pulse Rate 61 55 L Respiratory Rate 20 18 Blood Pressure 150/61 H 122/52 L Pulse Oximetry 97 95 Oxygen Delivery Method Room Air Oxygen Flow Rate 0 Narrative Exam Narrative: ENERAL: Alert and oriented, appearing stated age and in no acute distress. HEENT: Head normocephalic/atraumatic. LUNGS: Clear to ausculation bilaterally, no wheezes, rhonchi or rales. CV: Normal S1 and S2 with regular rate and rhythm, no audible murmurs, rubs or gallops. ABDOMEN: Soft, non-tender, non-distended, no organomegaly. Positive bowel sounds. EXTREMITIES: Right lower extremity with 5+ pitting edema to the level of knee. Erythema again reduced from line of demarcation approximately mid [place], remains tender to touch, weeping ulcers now crusted. Left lower extremity has 3+ pitting edema to level knee with some weeping. NEURO: Cranial nerves II through XII grossly intact, no focal deficits. PSYCH: Alert and oriented x 3. Objective Labs Result Diagrams: 11/15/19 05:00 11/15/19 05:00 Labs: Laboratory Results - last 24 hr 11/15/19 11/15/19 05:00 05:00 WBC 5.9 RBC 3.70 L Hgb 11.8 L Hct 34.5 L MCV 93.3 MCH 31.9 MCHC 34.2 RDW 13.1 Plt Count 247 Neut % (Auto) 65.3 Lymph % (Auto) 23.6 L [place] % (Auto) 10.0 Eos % (Auto) 0.5 L Baso % (Auto) 0.6 Neut # (Auto) 3900 Lymph # (Auto) 1400 [place] # (Auto) 600 Eos # (Auto) 0 Baso # (Auto) 0 Sodium 137 Potassium 3.9 Chloride 103 Carbon Dioxide 30 BUN 25 H Creatinine 0.93 Estimated GFR > 60.0 BUN/Creatinine Ratio 26.9 H Glucose 96 Calcium 9.8 Assessment & Plan Assessment & Plan narrative: 64-year-old female with morbid obesity and venous stasis changes with peripheral edema and cellulitis that has failed outpatient treatment with appropriate oral antibiotics. HD #5 Assessment 1. Weeping peripheral edema with new onset cellulitis, improved Plan: Blood cultures negative. Wound cultures showed staph epidermidis resistant to clindamycin, erythromycin, oxacillin. Patient is clinically improving. Will continue vancomycin and repeat labs in the morning. Continue PT/OT. Assessment 2. AFib with well-controlled rate Plan: Continue home diltiazem, metoprolol, Xarelto and amiodarone. Assessment 3. Hypertension, controlled at home, but has been labile in the hospital, likely secondary to pain Plan: Continue outpatient diltiazem, metoprolol, lisinopril, and lasix. Will continue to trend labs to monitor kidney function and treat underlying cellulitis that is causing her pain. Assessment 4. Hyperlipidemia Plan: Continue on outpatient atorvastatin. Assessment 5. History of gastroesophageal reflux disease Plan: Continue outpatient pantoprazole. Assessment 6. DVT prophylaxis Plan: Continue on Xarelto. SCDs on the left lower extremity but not on the right. Encourage patient with flexion and leg exercises. Assessment 7. Hypokalemia, controlled Plan: Continue outpatient potassium. Assessment 8. Reactive airway disease, stable without acute issues Plan: Continue Advair and Singulair and mometasone nasal spray. Assessment 9. Degenerative joint disease with chronic low back pain stable Plan: Continue on Lyrica, Tylenol, and baclofen. Assessment 10. Anemia, normocytic/normochromic, likely dilutional, IV now hep-locked and trending up. Plan: Will trend labs. Code status is full code Quality VTE Deep Vein Thrombosis/Pulmonary Embolism Present on Admission: No
[2019-11-15] MEDS: FLUTICASONE/SALMETEROL 250/50 60 PUFF DISKUS INH ×2 (08:42→20:01)
--- NOTE | 2019-11-15 10:30 | PT.IPTN ---
Current Diagnoses Cellulitis of left lower limb (11/10/19) Physical Therapy Treatment Note M2 PT-IP Current Condition Start: 11/14/19 17:34 Freq: NEEDED Status: Active Protocol: Document 11/14/19 15:20 AB (Rec: 11/14/19 17:47 AB [id number]) Physical Therapy Current Condition Current Condition Evaluation Date 11/14/19 Treatment Diagnosis RLE cellulitis; difficulty in walking Onset Date 11/10/19 Precautions Other Precautions contact precautions M3 PT-IP Subjective Start: 11/14/19 17:34 Freq: NEEDED Status: Active Protocol: Document 11/15/19 10:30 AB (Rec: 11/15/19 13:07 AB [id number]) Subjective Physical Therapy Visit Type Type Treatment Note Visit Start Time 10:30 Visit Stop Time 10:53 Total Visit Minutes 23 Number of WAREHOUSE TRAINER Visits 0 Physical Therapy Visit Comments Patient Comments pt is agreeable to do PT Therapy Pain Assessment Pain When Pain Assessed At Rest Pain Present Pain Present Pain Reported Location Back Intensity 2 Scale Used Numeric (1 - 10) Pain Management Techniques Timing of Activity with Medications M4 PT-IP Mobility and Gait Start: 11/14/19 17:34 Freq: NEEDED Status: Active Protocol: Document 11/15/19 10:30 AB (Rec: 11/15/19 13:07 AB [id number]) PT-Transfer Assessment Sit to and From Stand Sit to and from Stand Independent Equipment Transfer Assistive Device Straight Cane Orthotic/Prosthetic Devices or Brace: No Transfers Transfer Destination Toilet Transfer Technique ambulated using hurrycane Transfer Ability Level of Assist Independent Gait Assessment Gait Gait Assistance Required: Standby Assistance Distance (Feet) 200 Assistive Devices Assistive Device Tripod Cane/Hurry Cane Orthotic/Prosthetic Devices or Brace: No Gait Deviations General Gait Pattern Antalgic,Decreased Stride Length,Decreased Feet Clearance Factors Limiting Gait Function Factors Limiting Gait Function Decreased Activity Tolerance, Decreased Strength,Pain Comments Gait Comments pt completed sit to stand from chair modified independent and was able to ambulated to the toilet independently. ambulated in the hallway ~ 200 ft SBA using hurrycane with standing rest breaks in between. completed up/down stairs using bilateral rails SBA. pt ambulated back towards room using hurrycane SBA. informed pt regarding mobility and PT needs and agreed with PT d/c. pt is modified independent with mobility in room and needs SBA for safety only for long distance mobility. informed nurse. Stair Climbing Assessment Evaluation Level of Assist On Stairs Standby Assistance Devices Stair Climbing Assistive Devices Left Railing,Right Railing Technique/Endurance Stair Climbing Direction Ascend and Descend Stair Climbing Technique Step to Step Number of Steps Climbed 3 Stair Climbing Set # Repetitions (reps) 2 M5 PT-IP Objective Assessments Start: 11/14/19 17:34 Freq: NEEDED Status: Active Protocol: Document 11/14/19 15:20 AB (Rec: 11/14/19 17:47 AB [id number]) Orientation Orientation/Cognition Level of Alertness Alert Orientation Name,Age,Birthday,Month,Date, Year,Day of Week,Place, Situation Language Function Ability No Deficits Noted Safety Awareness Understands Safety Issues Memory Description No Deficits Noted Gross Range of Motion Lower Extremity ROM Assessment Within Functional Limits Strength Lower Extremity Strength Assessment Bilaterally Impaired Hip 4-/5 Knee 4-/5 Coordination Assessment Gross Coordination Gross Coordination WNL Sensation Assessment Sensation Gross Sensation WNL Muscle Tone Muscle Tone WNL Yes M6 PT-IP Treatment Start: 11/14/19 17:34 Freq: NEEDED Status: Active Protocol: Document 11/15/19 10:30 AB (Rec: 11/15/19 13:07 AB [id number]) Physical Therapy Treatment Education Education Provided Safety M7 PT-IP Assessment and Plan Start: 11/14/19 17:34 Freq: NEEDED Status: Active Protocol: Document 11/15/19 10:30 AB (Rec: 11/15/19 13:07 AB [id number]) PT Summary Assessment and Plan Potential Rehabilitation Potential Good Summary Impairments Pain,ROM,Strength,Balance,Bed Mobility,Transfers,Gait, Activity Tolerance Assessment Summary pt is modified independent with mobility in room and requires SBA only for long distance mobility for safety. informed pt on d/c plan and agreed. will d/c PT and no further PT intervention indicated at this time. Pt is at PLOF. Frequency of Treatment Frequency Of Treatment Discharge Treatment Plan Physical Therapy Treatment Plan Bed Mobility Training,Transfer Training,Gait Training, Therapeutic Exercise,Balance Retraining Recommendations To Nursing Amount of Assist Needed Independent Discharge Recommendations PT Discharge Recommendations Home,Outpatient PT Transportation Needs at Discharge Private Vehicle
[2019-11-15] MEDS: LINEZOLID 600 MG TABLET PO ×2 (10:45→21:06)
[2019-11-15] MEDS: SODIUM CHLORIDE 0.9% FLUSH 10 ML IV (10:45)
--- NOTE | 2019-11-15 12:57 | OT.IP.TRT ---
Current Diagnoses Cellulitis of left lower limb (11/10/19) Occupational Therapy Treatment Note M2 OT-IP Current Condition Start: 11/14/19 16:45 Freq: Status: Active Protocol: Document 11/14/19 14:05 [facility] (Rec: 11/14/19 17:20 [facility] [id number]) Occupational Therapy Current Condition Current Condition Evaluation Date 11/14/19 Treatment Diagnosis Cellultis for RLE Diagnosis Onset Date 11/10/19 Weight Bearing Status Weight Bearing Status Weight Bear as Tolerated M3 OT- IP Subjective and Pain Start: 11/14/19 16:45 Freq: Status: Active Protocol: Document 11/15/19 13:02 [facility] (Rec: 11/15/19 13:10 [facility] [id number]) OT- Subjective Occupational Therapy Visit Type Type Treatment Note Visit Start Time 12:19 Visit Stop Time 12:57 Total Visit Minutes 38 Occupational Therapy Visit Comments Patient Comments Pt wanting to shower. Patient/Caregiver Goals To go home. OT Pain Assessment Pain When Pain Assessed At Rest Pain Present Pain Present Pain Reported M4 OT- IP ADL's Start: 11/14/19 16:45 Freq: Status: Active Protocol: Document 11/15/19 13:02 [facility] (Rec: 11/15/19 13:10 [facility] [id number]) OT ADL-Dressing General Eval Upper Body Dressing Ability Independent Lower Body Dressing Ability Independent Comments OT Dressing Comments Pt independent for LB dressing needs and aware to sit for LB dressing needs of socks and preston brief over her feet initially. OT ADL-Toileting General Evaluation Toileting Ability Independent OT ADL-Bathing Bathing Type Bathing Type Shower General Evaluation Bathing Ability Minimal Assistance Areas Needing Assistance Wash/Dry Back Comments OT Bathing Comments JAIRON to help wash her back, suggested to use long towel with handles to increased ease to wash her back , in addition to do while sitting. Pt had loss of balance and needing CGA to regain her balance and also use of grab bars to help. Pt realizes would be best at home to obtain a shower chair for showering needs. M5 OT- IP IADL's Start: 11/14/19 16:45 Freq: Status: Active Protocol: Document 11/14/19 14:05 [facility] (Rec: 11/14/19 17:20 [facility] [id number]) OT-Instrumental Activities of Daily Living Home Safety Awareness Awareness of Need for Assistance at Home Good Awareness Ability to Problem Solve Emergency Able to Problem Solve Situations Medication Management Medication Management No Deficits Identified Money Management Money Management No Deficits Identified Meal Preparation Meal Preparation Caregiver Provides Assist Cloth Framer Cloth Framer Caregiver Provides Assist M6 OT- IP Functional Cognition Start: 11/14/19 16:45 Freq: Status: Active Protocol: Document 11/15/19 13:02 [facility] (Rec: 11/15/19 13:10 [facility] [id number]) Cognitive Factors Limiting Selfcare Function Cognitive Comments Cognitive Assessment Comments Pt appears at baseline at this time with no cognitive deficits. Pt able to identify suggestions for information given for fall prevention/ energy conservation to her and wanting an extra copy to give to her family. M7 OT- IP Mobility and Balance Start: 11/14/19 16:45 Freq: Status: Active Protocol: Document 11/15/19 13:02 [facility] (Rec: 11/15/19 13:10 [facility] [id number]) OT-Transfer Assessment Sit to and From Stand Sit to and from Stand Independent Transfers Transfer Ability Independent,Standby Assistance Technique Transfer Destination Chair,Shower Stall,Toilet Devices Transfer Assistive Devices Gait Belt,Straight Cane Comments Mobility Comments CLose SBA while stepping over the threshold of the shower with tripod cane and use of grab bar for safety. OT- Balance Assessment Sitting Balance and Reactions Static Sitting Balance Ability Normal Dynamic Sitting Balance Ability Normal Standing Balance and Reactions Static Standing Balance Ability Good Dynamic Standing Balance Ability Fair M8 OT- IP Objective Assessments Start: 11/14/19 16:45 Freq: Status: Active Protocol: Document 11/14/19 14:05 [facility] (Rec: 11/14/19 17:20 [facility] [id number]) OT Gross Range of Motion Upper Extremity Range of Motion Assessment Within Functional Limits OT Strength Upper Extremity Strength Assessment Within Functional Limits OT-Muscle Tone Assessment Muscle Tone WNL Yes M9 OT- IP Assessment and Plan Start: 11/14/19 16:45 Freq: Status: Active Protocol: Document 11/15/19 13:02 [facility] (Rec: 11/15/19 13:10 [facility] [id number]) OT Summary Assessment and Plan Potential Rehabilitation Potential Excellent Analytic Complexity at Evaluation Low Summary Progress Towards Goals Goals Met Assessment Summary Pt needing JAIRON for showering to assist for her back. Pt states realizes would be best to have a shower chair for showering needs and that her family will be there as well. Pt has met all other OT goals and therefore discharge form OT services at this time . Treatment Plan OT Treatment Plan Discharge Planning Discharge Recommendations OT Discharge Recommendations Home with Assistance Home Equipment Needs Shower chair Transportation Needs at Discharge Private Vehicle
--- NOTE | 2019-11-15 15:36 | CM.DPNOTE ---
DCP Cont Reviewed chart, placed call to Dr Johnson this morning, reviewed DCP. Dr Johnson suggested that patient may be able to DC home today if home infusion were available to provide approx. 4-5 additional days of IV vanco, currently Q18. Discussed w/patient and she was agreeable to this STEEL[employer]ER researching this option on her behalf. Placed call to [facility] (referral had been started by KARMEN Uribe), faxed updated clinicals and included PICC line insertion record from zanda. May from [facility] responded and was poised to provide patient home infusion tomorrow AM if patient had DC home this evening. Minimal out of pocket cost expected. PT= Home w/outpt PT Placed call to Dr Johnson to update on above and she explained patient had been switched to po Zyvox, IV Vanc had been DC. Patient expected to DC home tomorrow on po abx. Patient updated and seems relieved by this. Updated May at [facility]. P: DC home w/family to assist, po abx, friends/family to transport upon DC Keesha Johansen MSW
[2019-11-15] MEDS: RIVAROXABAN 10 MG TABLET 20 MG PO (21:06)
[2019-11-15] MEDS: ATORVASTATIN 10 MG TABLET PO (21:07)
[2019-11-15] MEDS: PANTOPRAZOLE 40 MG TABLET PO (21:10)
[2019-11-16] MEDS: ACETAMINOPHEN 325 MG TABLET 650 MG PO ×2 (00:21→06:30)
[2019-11-16 05:07] VITALS: BP 140/60; PULSE 56; RESP 18; TEMP 36.6; O2SAT 96
[2019-11-16 06:39] LABS: Add Manual Diff / Slide Review NO; Basophils Absolute Auto 0 /uL (0-100); Basophils Percent Auto 0.9 % (0-2); Eosinophils Absolute Auto 100 /uL (0-450); Hematocrit 34.5 % (36-46); Hemoglobin 11.6 g/dL (12.0-16.0); Lymphocytes Absolute Auto 1300 /uL (1100-4500); Lymphocytes Percent Auto 23.9 % (25-40); Mean Corpuscular HGB Conc 33.7 % (30-36); Mean Corpuscular Hemoglobin 31.5 PG (26-34); Mean Corpuscular Volume 93.4 fL (80-100); Monocytes Absolute Auto 500 /uL (0-900); Neutrophils Absolute Auto 3500 /uL (1500-7000); Neutrophils Percent Auto 64.2 % (50-75); Platelet Count 253 X10^3/uL (150-400); Red Blood Cell Count 3.69 X10^6/uL (4.0-5.2); Red Cell Distribution Width 13.5 % (11.6-14.8); White Blood Cell Count 5.4 X10^3/uL (4.5-11.0)
[2019-11-16 06:44] LABS: BUN Creatinine Ratio 30.6 (6-22); Blood Urea Nitrogen 26 mg/dL (7-17); Calcium 9.8 mg/dL (8.4-10.2); Carbon Dioxide 30 mmol/L (22-32); Chloride 104 mmol/L (98-107); Estimated Glomerular Filt Rate > 60.0 mL/min (>60); Glucose 101 mg/dL (80-110); HEMOLYSIS < 15 (0-50); Potassium 3.8 mmol/L (3.4-5.1); Sodium 139 mmol/L (137-145)
[2019-11-16 08:00] VITALS: BP 151/69; PULSE 60; RESP 18; TEMP 36.1; O2SAT 94
[2019-11-16] MEDS: dilTIAZem CD 240 MG CAP PO (08:34)
[2019-11-16] MEDS: MOMETASONE 120 SPRAY/17 GM NASAL SPRAY NASAL (08:34)
[2019-11-16] MEDS: LINEZOLID 600 MG TABLET PO (08:34)
[2019-11-16] MEDS: POTASSIUM CHLORIDE 20 MEQ TAB PO (08:35)
[2019-11-16] MEDS: lisinopriL 10 MG TABLET PO (08:35)
[2019-11-16] MEDS: AMIODARONE 200 MG TABLET PO (08:35)
[2019-11-16] MEDS: MONTELUKAST 10 MG TABLET PO (08:35)
[2019-11-16] MEDS: FUROSEMIDE 40 MG TABLET 80 MG PO (08:35)
[2019-11-16] MEDS: SODIUM CHLORIDE 0.9% FLUSH 10 ML IV (08:36)
[2019-11-16] MEDS: PREGABALIN 25 MG CAPSULE PO (08:50)
[2019-11-16] MEDS: FLUTICASONE/SALMETEROL 250/50 60 PUFF DISKUS INH (09:47)
[2019-11-16 09:55] VITALS: PULSE 60; RESP 16; O2SAT 96
--- NOTE | 2019-11-16 10:31 | PM.DS.1 ---
History of Present Illness History of Present Illness Date Patient Seen: 11/16/19 Time Patient Seen: 10:31 Chief complaint: rt leg/ cellulitis Narrative: Patient is 64-year-old female who was admitted to the hospital for lower extremity cellulitis with concern for possible MRSA cellulitis that failed outpatient treatment. Patient's symptoms started approximately 2 weeks ago and she was seen in the emergency department on October 31 and started on cephalexin and clindamycin. She faithfully took the medication in that presented to the ER on date of admission which was 11/10/2019 due to worsening pain, swelling, erythema despite the outpatient medications. Patient is also feeling fatigued and ?woozy?. Patient is a new patient to Dr. Johnson and was seen once via telemedicine. Patient lives in [place]. Discharge Providers Provider Date of admission: 11/10/19 18:26 Discharge Date: 11/16/19 Primary care physician: Sabrina Johnson MD Consults: 11/14/19 10:49 Consult to Occupational Therapy Evaluate & Treat Comment: Physician Instructions: Evaluate and treat Consult to Physical Therapy Evaluate & Treat Comment: Physician Instructions: Evaluate and Treat Discharge provider: Sabrina Johnson MD Summary Hospital Course Discharge Diagnosis: 64-year-old female with morbid obesity and venous stasis changes with peripheral edema and cellulitis that has failed outpatient treatment with appropriate oral antibiotics. HD #5 1. Weeping peripheral edema with new onset cellulitis secondary to staph epidermidis resistant to clindamycin, erythromycin, oxacillin. 2. AFib with well-controlled rate 3. Hypertension, controlled at home, but has been labile in the hospital, likely secondary to pain 4. Hyperlipidemia, chronic 5. Gastroesophageal reflux disease, chronic 6. Hypokalemia, controlled 7. Reactive airway disease, stable without acute issues 8. Degenerative joint disease with chronic low back pain, stable 9. Anemia, normocytic/normochromic, likely dilutional, improving Hospital Course: Fairly unremarkable course. Patient received IV vancomycin upon admission with steady improvement of her cellulitis, she was afebrile throughout her stay. Blood cultures were negative. Wound culture showed staph epidermidis resistant to clindamycin, erythromycin, oxacillin. On day prior to discharge, she was transitioned to oral linezolid and tolerated that well. On day of discharge, she was afebrile with stable vital signs throughout. Her blood pressures were labile during her stay but she was also having pain; home blood pressure medications were not adjusted. She will be discharged with oral linezolid and close outpatient follow-up. Time spent on Discharge and Coordination of post-hospital care: 35 minutes Status at Discharge Cognitive/behavioral status at discharge: at baseline, oriented Functional status at discharge: independent ambulation Overall status at discharge: patient is progressing back to baseline Exam Vital Signs (past 8 hours): - 11/16/19 05:07 11/16/19 08:00 11/16/19 09:55 Temperature 97.8 F 97.0 F L Pulse Rate 56 L 60 60 Respiratory Rate 18 18 16 Blood Pressure 140/60 151/69 H Pulse Oximetry 96 94 96 Oxygen Delivery Method Room Air Oxygen Flow Rate 0 Narrative Exam Narrative: GENERAL: Alert and oriented, appearing stated age and in no acute distress. HEENT: Head normocephalic/atraumatic. LUNGS: Clear to ausculation bilaterally, no wheezes, rhonchi or rales. CV: Normal S1 and S2 with regular rate and rhythm, no audible murmurs, rubs or gallops. ABDOMEN: Soft, non-tender, non-distended, no organomegaly. Positive bowel sounds. EXTREMITIES: Right lower extremity with 5+ pitting edema to the level of knee. Erythema again reduced from line of demarcation approximately mid khanna, remains tender to touch, weeping ulcers now crusted. Left lower extremity has 3+ pitting edema to level knee with some weeping. NEURO: Cranial nerves II through XII grossly intact, no focal deficits. PSYCH: Alert and oriented x 3. Objective Labs Result Diagrams: 11/16/19 06:13 11/16/19 06:13 Labs: Laboratory Results - last 24 hr 11/16/19 11/16/19 06:13 06:13 WBC 5.4 RBC 3.69 L Hgb 11.6 L Hct 34.5 L MCV 93.4 MCH 31.5 MCHC 33.7 RDW 13.5 Plt Count 253 Neut % (Auto) 64.2 Lymph % (Auto) 23.9 L [place] % (Auto) 10.0 Eos % (Auto) 1.0 L Baso % (Auto) 0.9 Neut # (Auto) 3500 Lymph # (Auto) 1300 [place] # (Auto) 500 Eos # (Auto) 100 Baso # (Auto) 0 Sodium 139 Potassium 3.8 Chloride 104 Carbon Dioxide 30 BUN 26 H Creatinine 0.85 Estimated GFR > 60.0 BUN/Creatinine Ratio 30.6 H Glucose 101 Calcium 9.8 Discharge Plan Discharge Plan Patient Disposition: Home Discharge orders & Medications Prescriptions: New linezolid 600 mg Tablet 600 mg PO BID Qty: 26 RF: 0 Continued potassium chloride 20 mEq tablet,ER particles/crystals 20 meq PO DAILY RF: 0 furosemide 40 mg tablet 80 mg PO DAILY RF: 0 Adults Multivitamin tablet 1 tab PO DAILY RF: 0 fluticasone propion-salmeterol [Advair Diskus] 250-50 mcg/dose Blister With Device 1 inh INHALATION BID RF: 0 famotidine 10 mg Tablet 10 mg PO BEDTIME RF: 0 diltiazem HCl 240 mg Capsule,Ext.Rel 24h Degradable 240 mg PO DAILY RF: 0 atorvastatin 10 mg Tablet 10 mg PO BEDTIME RF: 0 amiodarone 200 mg Tablet 200 mg PO DAILY RF: 0 metoprolol succinate 50 mg Tablet Extended Release 24 Hr 50 mg PO DAILY RF: 0 meloxicam 15 mg Tablet 15 mg PO DAILY RF: 0 meclizine 25 mg Tablet 25 mg PO DAILY PRN (Reason: Headache) RF: 0 baclofen 10 mg Tablet 10 mg PO DAILY RF: 0 pantoprazole 40 mg Tablet,Delayed Release (Dr/Ec) 40 mg PO DAILY RF: 0 lisinopril 10 mg Tablet 10 mg PO DAILY RF: 0 mometasone 50 mcg/actuation [place],Non-Aerosol 2 spray INTRANASAL BEDTIME RF: 0 montelukast 10 mg Tablet 10 mg PO BEDTIME RF: 0 cholecalciferol (vitamin D3) 25 mcg (1,000 unit) Capsule 25 mcg PO DAILY RF: 0 pregabalin [Lyrica] 25 mg Capsule 25 mg PO BID RF: 0 acetaminophen [Tylenol] 325 mg Capsule 650 mg PO Q4H PRN (Reason: Pain (Scale Score 1-3)) RF: 0 vitamin U99-ahcgl acid 500-400 mcg Tablet 1 tab PO DAILY RF: 0 Xarelto 20 mg Tablet 20 mg PO BEDTIME RF: 0 magnesium citrate 100 mg Tablet 100 mg PO BEDTIME RF: 0 Discontinued cephalexin 500 mg capsule 500 mg PO TID Qty: 21 RF: 0 clindamycin HCl 300 mg capsule 300 mg PO TID Qty: 21 RF: 0 Follow up/Referrals: Sabrina Johnson MD [Primary Care Provider] - Diet/Activity/Treatments Diet: Diet as Tolerated Activity: as tolerated Skin/Wound/Dressing Care Skin care: Daily washing of legs to keep clean, apply antibiotic ointment to open sore Visit Report/Discharge Packet Instructions: DI for Cellulitis -- Adult Visit Report Forms: Patient Portal/API, Stroke Signs & Symptoms Discharge Data Primary Care Provider: Sabrina Johnson Quality VTE Deep Vein Thrombosis/Pulmonary Embolism Present on Admission: No
--- NOTE | 2019-11-16 12:58 | PC.NURSE ---
Addendum entered by Piedad Reid R.N. 11/16/19 14:10: discharged from hospital at this time Original Note: preparing for discharge following removal of picc line as well as removal of tele- pt dressing self and assisted with collection of personal items
== END 2019-11-16 13:55 | disposition home or self-care (01) | DRG 603 ==
LOC: ED 16:23 → AC 18:27
PROVIDERS: Admitting Provider Family Medicine; Emergency Provider Nurse Practitioner Family; PCP Student in an Organized Health Care Education/Training Program; Referring Provider Nurse Practitioner Family; Visit Provider Family Medicine
DX: L03.116 Cellulitis of left lower limb (principal); Z68.43 Body mass index [BMI] 50.0-59.9, adult; Z16.29 Resistance to other single specified antibiotic; Z16.11 Resistance to penicillins; E66.01 Morbid (severe) obesity due to excess calories; I48.0 Paroxysmal atrial fibrillation; Z79.01 Long term (current) use of anticoagulants; E87.6 Hypokalemia; I87.8 Other specified disorders of veins; B95.7 Other staphylococcus as the cause of diseases classified elsewhere; I10 Essential (primary) hypertension; E78.5 Hyperlipidemia, unspecified; K21.9 Gastro-esophageal reflux disease without esophagitis; G89.29 Other chronic pain; J45.909 Unspecified asthma, uncomplicated; Z03.818 Encounter for observation for suspected exposure to other biological agents ruled out
CPT/HCPCS: 36415; 36573; 36592; 80048; 80053; 80202; 81003; 83605; 84145; 85025; 87040; 87070; 87075; 87077; 87186; 87205; 87635; 93971; 94640; 94660; 94760; 97116; 97161; 97165; 97530; 97535; 99284; J1642

== ENCOUNTER → 2019-11-22 14:32 | Outpatient (CLI) | payer OTHER, MEDICAID, SELFPAY ==
[2019-11-10 19:46] VITALS: BMI 47.0
[2019-11-22 14:53] LABS: Add Manual Diff / Slide Review NO; Basophils Absolute Auto 100 /uL (0-100); Basophils Percent Auto 1.3 % (0-2); Eosinophils Absolute Auto 0 /uL (0-450); Eosinophils Percent Auto 0.3 % (2-4); Hematocrit 36.8 % (36-46); Hemoglobin 12.4 g/dL (12.0-16.0); Lymphocytes Absolute Auto 1500 /uL (1100-4500); Lymphocytes Percent Auto 31.4 % (25-40); Mean Corpuscular HGB Conc 33.8 % (30-36); Mean Corpuscular Hemoglobin 31.7 PG (26-34); Mean Corpuscular Volume 93.8 fL (80-100); Monocytes Absolute Auto 400 /uL (0-900); Monocytes Percent Auto 8.8 % (3-14); Neutrophils Absolute Auto 2900 /uL (1500-7000); Neutrophils Percent Auto 58.2 % (50-75); Platelet Count 281 X10^3/uL (150-400); Red Blood Cell Count 3.93 X10^6/uL (4.0-5.2); Red Cell Distribution Width 13.6 % (11.6-14.8); White Blood Cell Count 4.9 X10^3/uL (4.5-11.0)
[2019-11-22 15:04] LABS: D Dimer 205 ng/mL (<230)
[2019-11-22 15:23] LABS: BUN Creatinine Ratio 22.6 (6-22); Blood Urea Nitrogen 33 mg/dL (7-17); Calcium 10.2 mg/dL (8.4-10.2); Carbon Dioxide 25 mmol/L (22-32); Chloride 103 mmol/L (98-107); Estimated Glomerular Filt Rate 35.8 mL/min (>60); Glucose 100 mg/dL (80-110); HEMOLYSIS < 15 (0-50); Potassium 5.2 mmol/L (3.4-5.1); Sodium 138 mmol/L (137-145)
== END ==
PROVIDERS: PCP Student in an Organized Health Care Education/Training Program; Referring Provider Student in an Organized Health Care Education/Training Program; Visit Provider Student in an Organized Health Care Education/Training Program
DX: L03.90 Cellulitis, unspecified (principal); R60.9 Edema, unspecified; D64.9 Anemia, unspecified
CPT/HCPCS: 36415; 80048; 85025; 85379

== ENCOUNTER → 2019-11-26 12:34 | Outpatient (CLI) | payer OTHER, MEDICAID, SELFPAY ==
[2019-11-10 19:46] VITALS: BMI 47.0
--- NOTE | 2019-11-26 12:37 | DI.US.S_ITS ---
PROCEDURE: PERIP VENOUS LOW EXTREM RT INDICATIONS: EDEMA TECHNIQUE: Real-time imaging, as well as color and pulse Doppler interrogation, were performed of the lower extremity deep veins from the inguinal ligament to the popliteal fossa. COMPARISON: [facility], [facility] VENOUS LOW EXTREM RT, 11/01/2019, 21:20. [facility], PERIP VENOUS LOW EXTREM RT, 11/10/2019, 17:17. FINDINGS: The common femoral, femoral and popliteal veins are normally compressible, and free of intraluminal thrombus. Color and pulse Doppler demonstrate normal phasic intraluminal flow. There is normal augmentation response to distal compression maneuver. IMPRESSION: No findings of deep venous thrombosis are seen. Dictated by: Alexandre Hart M.D. on 11/26/2019 at 14:24 Approved by: Alexandre Hart M.D. on 11/26/2019 at 14:25
== END ==
PROVIDERS: PCP Student in an Organized Health Care Education/Training Program; Referring Provider Student in an Organized Health Care Education/Training Program; Visit Provider Student in an Organized Health Care Education/Training Program
DX: R60.9 Edema, unspecified (principal); L03.115 Cellulitis of right lower limb
CPT/HCPCS: 93971

== ENCOUNTER → 2019-12-17 14:01 | Outpatient (ROUT) | payer OTHER, MEDICAID, SELFPAY ==
[2019-11-10 19:46] VITALS: BMI 47.0
[2019-12-17 14:15] LABS: D Dimer < 200 ng/mL (<230)
== END ==
PROVIDERS: PCP Student in an Organized Health Care Education/Training Program; Visit Provider Student in an Organized Health Care Education/Training Program
DX: R60.9 Edema, unspecified (principal)
CPT/HCPCS: 85379

== ENCOUNTER → 2019-12-20 12:51 | Outpatient (CLI) | payer OTHER, MEDICAID, SELFPAY ==
[2019-11-10 19:46] VITALS: BMI 47.0
--- NOTE | 2019-12-20 | DI.RAD.S_ITS ---
PROCEDURE: XR HAND RT MIN 3V INDICATIONS: R HAND PAIN TECHNIQUE: 3 views of the hand(s) acquired. COMPARISON: None. FINDINGS: Bones: No acute fractures or dislocations. Carpal bones are normally aligned. No suspicious bony lesions. There are degenerative changes noted throughout the right hand most severe at the first carpometacarpal joint and the second carpometacarpal joint. There are moderate degenerative changes involving the distal interphalangeal joints of the second and third fingers as well as the interphalangeal joint of the right thumb. Small subchondral cysts noted at the head of the thumb proximal phalanx, heads of the second and third middle phalanx, and heads of the thumb and middle finger metacarpals. No overlying cortical erosions. No periarticular osteopenia. Soft tissues: No suspicious soft tissue calcifications. IMPRESSION: Multilevel degenerative changes of the right hand most severe at the first and second carpometacarpal joints. Dictated by: Michael Beal M.D. on 12/20/2019 at 13:55 Approved by: Michael Beal M.D. on 12/20/2019 at 13:58
== END ==
PROVIDERS: PCP Student in an Organized Health Care Education/Training Program; Referring Provider Student in an Organized Health Care Education/Training Program; Visit Provider Student in an Organized Health Care Education/Training Program
DX: M79.641 Pain in right hand (principal)
CPT/HCPCS: 73130